=== PATIENT | male | born 1950 | race Caucasian/White ===

== ENCOUNTER 2016-05-30 22:05 | Inpatient (IN) | payer MEDICARE, MEDICAID ==
[~2016-05-30] VITALS: Ht 180.3 cm; Wt 118.6 kg
[2016-05-30 23:31] LABS: BASOPHILS 0.1 % (0.0-2.0); EOSINOPHILS 0 % (0-7); HEMATOCRIT 50.3 % (42.0-54.0); HEMOGLOBIN 17.5 g/dL (13.5-17.5); IMMATURE GRANULOCYTES 0.2 % (0-5); LYMPHOCYTES 8.5 % (15-50); MCHC 34.8 g/dL (31.0-37.0); MEAN PLATELET VOLUME 10.8 fL (7.4-10.4); MONOCYTES 8.5 % (2-11); NEUTROPHILS 82.7 % (40-80); PLATELET COUNT 270 10x3/uL (130-400); RBC 5.47 10x6/uL (4.20-6.10); RDW 13.7 % (11.5-14.5); WBC 18.4 10x3/uL (4.8-10.8)
[2016-05-30 23:56] LABS: ALBUMIN 4.6 g/dL (3.4-5.0); ALKALINE PHOSPHATASE 76 U/L (46-116); ALT (SGPT) 12 U/L (10-68); BILIRUBIN - TOTAL 0.87 mg/dL (0.2-1.3); CALC OSMOLALITY 294 mosm/kg (275-300); CALCIUM 10.2 mg/dL (8.5-10.1); CARBON DIOXIDE 38.3 mmol/L (21.0-32.0); CHLORIDE - SERUM 86 mmol/L (98-107); CREATINE KINASE 85 UL (21-232); CREATININE - SERUM 4.5 mg/dL (0.6-1.3); GLUCOSE 136 mg/dL (74-106); MAGNESIUM - SERUM 2.8 mg/dL (1.8-2.4); POTASSIUM - SERUM 3.4 mmol/L (3.5-5.1); PRO BNP 981 pg/mL (0-125); SODIUM 138 mmol/L (136-145); UREA NITROGEN 60 mg/dL (7-18); eGFR NON AFRICAN AMERICAN 14 mL/min (90-120)
[2016-05-30 23:59] LABS: TROPONIN-I < 0.017 ng/mL (0.000-0.060)
[2016-05-31 00:43] LABS: CKMB 0.7 U/L (0.0-3.6)
[2016-05-31] MEDS ORDERED: MORPHINE SULFAT60 M5 PO (03:12)
[2016-05-31] MEDS ORDERED: ZANAFLEX4 MG PO (03:13)
[2016-05-31] MEDS ORDERED: HYDROCODONE-APA1 TAB PO (03:14)
[2016-05-31 03:38] VITALS: BP 101/57; BMI 18.1
[2016-05-31 04:00] VITALS: BP 97/68
--- NOTE | 2016-05-31 08:10 | NUR ---
ASSESSMENT DONE. PT SITTING UP IN BED EATING. A/O. DENIES NEEDS AT THIS TIME. NO DISTRESS NOTED. DENIES SOB. CRACKLES HEARD BILATERALLY. CALL LIGHT WITH IN REACH. WILL CONT. TO MONITOR.
[2016-05-31 08:12] VITALS: BP 108/61
--- NOTE | 2016-05-31 10:25 | NUR ---
RESTS WITH EYES CLOSED. TELEMETRY SR. CALL LIGHT IN REACH. WILL CONT. PLAN OF CARE.
[2016-05-31 12:03] VITALS: BP 81/44
--- NOTE | 2016-05-31 12:05 | NUR ---
ORDER FOR UA REC'D. TOOK NEW URINAL IN ROOM WITH SPECIMAN CUP AND INFORMED PT THAT CLEAN SPECIMEN WAS NEEDED.
[2016-05-31 16:22] VITALS: BP 97/55
[2016-05-31 17:03] LABS: PHOSPHOROUS 4.4 mg/dL (2.5-4.9)
--- NOTE | 2016-05-31 17:35 | NUR ---
PT SLEEPING. RESP EVEN AND UNLABORED. NO DISTRESS NOTED. CALL LIGHT WITH IN REACH. WILL CONT. TO MONITOR.
[2016-05-31 21:48] VITALS: BP 100/64
[2016-05-31 22:02] LABS: CREATININE - URINE 131.5 mg/dL (30-125); POTASSIUM - URINE 61.9 MMOL/L (12.0-62.0); PROTEIN - URINE 47.9 mg/dL (0.0-11.9)
[2016-05-31 22:07] LABS: APPEARANCE CLEAR (CLEAR); BILIRUBIN NEGATIVE (NEGATIVE); COLOR YELLOW (YELLOW); GLUCOSE NEGATIVE (NEGATIVE); KETONE NEGATIVE (NEGATIVE); LEUKOCYTE ESTERASE NEGATIVE (NEGATIVE); NITRITE NEGATIVE (NEGATIVE); PROTEIN 1+ mg/dL (NEGATIVE); SPECIFIC GRAVITY 1.015 (1.005-1.020); UROBILINOGEN NORMAL (NORMAL)
[2016-05-31 22:08] LABS: BACTERIA FEW /hpf (NONE SEEN); EPITHELIAL CELLS 0-5 /hpf (0-5); HYALINE CAST 0-5 /lpf (NONE SEEN); RED CELLS - URINE 0-5 /hpf (0-5); WHITE CELLS - URINE 0-5 /hpf (0-5)
--- NOTE | 2016-05-31 22:14 | NUR ---
INITIAL ROUNDS COMPLETED AT 1910 HRS. PT DENIED ANY DISCOMFORT. ASSSESSMENT COMPLETED AT 1999 HRS. VSS. SR PER CM HR 84. IV TO LAC WITH NS WITH 20 MEQ KCL AT 150CC/HR. IV PATENT. LUNGS DIMINISHED IN BASES BILAT. VSS. UA SENT TO LAB AT 2130 HRS. PT CURRENTLY RESTING WITH EYES CLOSED. RESP EVEN AND REGULAR. SR UP X2, CALL LIGHT WITHIN REACH.
[2016-06-01] VITALS (7 sets, daily range): BP systolic 75–120; BP diastolic 37–63
--- NOTE | 2016-06-01 00:33 | NUR ---
PT RESTING WITH EYES CLOSED. RESP EVEN AND REGULAR. SR UP X2, CALL LIGHT WITHIN REACH.
--- NOTE | 2016-06-01 02:16 | NUR ---
PT RESTING WITH EYES CLOSED. RESP EVEN AND REGULAR. SR UP X2, CALL LIGHT WITHIN REACH.
--- NOTE | 2016-06-01 04:46 | NUR ---
PT RESTING WITH EYES CLOSED. RESP EVEN AND REGULAR. SR UP X2, CALL LIGHT WITHIN REACH.
--- NOTE | 2016-06-01 06:45 | NUR ---
NORCO 10/325 PO GIVEN FOR C/O CHRONIC BACK PAIN. VSS THROUGHOUT NIGHT. NEEDS MET; WILL CONTINUE TO MONITOR.
[2016-06-01 07:02] LABS: BASOPHILS 0.1 % (0.0-2.0); EOSINOPHILS 0 % (0-7); IMMATURE GRANULOCYTES 0.1 % (0-5); LYMPHOCYTES 19.1 % (15-50); MCHC 33.3 g/dL (31.0-37.0); MCV 93.1 fL (80.0-100.0); MEAN PLATELET VOLUME 10.6 fL (7.4-10.4); MONOCYTES 10.5 % (2-11); NEUTROPHILS 70.2 % (40-80); RDW 13.5 % (11.5-14.5)
[2016-06-01 07:03] LABS: HEMATOCRIT 37.8 % (42.0-54.0); HEMOGLOBIN 12.6 g/dL (13.5-17.5); PLATELET COUNT 208 10x3/uL (130-400); RBC 4.06 10x6/uL (4.20-6.10); WBC 7.7 10x3/uL (4.8-10.8)
[2016-06-01 07:24] LABS: ANION GAP 11.6 mmol/L (8-16); CALCIUM 8.6 mg/dL (8.5-10.1); CARBON DIOXIDE 31.1 mmol/L (21.0-32.0); POTASSIUM - SERUM 3.7 mmol/L (3.5-5.1)
[2016-06-01 07:28] LABS: CREATININE - SERUM 1.5 mg/dL (0.6-1.3)
--- NOTE | 2016-06-01 07:45 | NUR ---
PT RESTING QUIETLY IN BED WITH EYES CLOSED. RR NONLABORED ON RA. INTRODUCED MYSELF TO PT PRIMARY RN FOR TODAYS SHIFT. PT IS ALERT AND ORIENTED. PT STATES HE SLEPT WELL. L.AC PIV PATENT AND INFUSING NS WITH 20MEQ OF KCL @150ML/HR. TELEMETRY IN PLACE RUNNING SR. SCDS IN PLACE BILAT. PT DENIES ANY CURRENT NEEDS AT THIS TIME. CL IN REACH, BED IN LOWEST, SIDE RAILS X2, WILL CTM.
--- NOTE | 2016-06-01 11:15 | NUR ---
PT C/O NAUSEA REQUESTING AND PROVIDED WITH PRN ZOFRAN. PT ALSO C/O HIS CHRONIC BACK PAIN ACHING PRETTY BAD, REQUESTED AND PROVIDED WITH PRN MORPHINE. HUNG NEW FLUID BAG OF NS WITH 20MEQ OF KCL. L.AC PIV SITE INTACT, SWAB CAPS IN USE AND TUBING DATED. PT VOICES THANKS AND DENIES ANY FURTHER NEEDS AT THIS TIME. CL IN REACH. WILL CPOC.
--- NOTE | 2016-06-01 13:45 | NUR ---
PT REQUESTING AND PROVIDED WITH PRN NORCO AND TIZANIDINE FOR BACK PAIN. PROVIDED PT WITH FRESH ICE WATER WELL. PT VOICED THANKS AND DENIES ANY FURTHER NEEDS AT THIS TIME. WILL CTM.
--- NOTE | 2016-06-01 17:30 | NUR ---
PTS L.AC PIV LEAKING. D/C IV WITH CATHETER TIP FULLY INTACT. SITE CLEANED WITH ALCOHOL PAD AND PLACED A BANDAID OVER IT. WILL GET NEW ACCESS SHORTLY.
--- NOTE | 2016-06-01 17:46 | NUR ---
22 GAUGE IV PLACED TO RIGHT FOREARM X 1 STICK. GOOD BLOOD RETURN, EASY FLUSH. TAPED, DATED AND SECURED. TOLERATED IV PLACEMENT WELL. NO DISTRESS.
--- NOTE | 2016-06-01 18:34 | NUR ---
DISCONNECTED PT FROM IV FLUIDS SO HE CAN GET IN THE SHOWER. WILL CONNECT AFTERWARDS. PT REQUESTING SOMETHING FOR PAIN BUT BP HAS BEEN RUNNING LOW. LAST READING 76/46. WILL RECHECK AFTER SHOWER AND SEE IF PT IS ABLE TO HAVE PAIN MEDICATION.
--- NOTE | 2016-06-01 22:28 | NUR ---
INITIAL ROUNDS COMPLETED AT 191 HRS. PT IN SHOWER AT THAT TIME. ASSESSMENT COMPLETED AT 1954 HRS. SR PER CM HR 78. IV TO RFA WITH NS WITH 20 KCL AT 150CC/HR. IV PATENT. LUNGS DIMINISHED IN BASES BILAT. PT UP AD [place]. REFUSES SCD'S AT THAT TIME. ZANAFLEX GIVEN FOR C/O CHRONIC BACK PAIN. PT STATES LATER TAHT IT WORKED. PT CURRENTLY WATCHING TV. WILL CONTINUE TO MONITOR. SR UP X2, CALL LIGHT WITHIN WITHIN REACH.
[2016-06-02] VITALS (7 sets, daily range): BP systolic 81–126; BP diastolic 40–67; Ht 180.3 cm; Wt 118.6 kg
--- NOTE | 2016-06-02 00:53 | NUR ---
ICE CREAM AND GASTON CRACKERS GIVEN PER REQUEST. WILL CONTINUE TO MONITOR.
--- NOTE | 2016-06-02 02:53 | NUR ---
PT REQUESTING ZANAFLEX. BP 95/53. ZANAFLEX TO BE GIVEN FOR C/O MUSCLE SPASMS. WILL CONTINUE TO MONITOR.
--- NOTE | 2016-06-02 05:36 | NUR ---
PT AWAKE; DENIES ANY DISCOMFORT. WILL CONTINUE TO MONITOR.
[2016-06-02 06:27] LABS: BASOPHILS 0.3 % (0.0-2.0); EOSINOPHILS 0.6 % (0-7); HEMATOCRIT 35.5 % (42.0-54.0); HEMOGLOBIN 11.5 g/dL (13.5-17.5); IMMATURE GRANULOCYTES 0.2 % (0-5); LYMPHOCYTES 32.6 % (15-50); MCH 30.9 pg (26.0-34.0); MCHC 32.4 g/dL (31.0-37.0); MEAN PLATELET VOLUME 10.6 fL (7.4-10.4); NEUTROPHILS 57.3 % (40-80); PLATELET COUNT 226 10x3/uL (130-400); RBC 3.72 10x6/uL (4.20-6.10); RDW 13.2 % (11.5-14.5); WBC 6.2 10x3/uL (4.8-10.8)
--- NOTE | 2016-06-02 06:38 | NUR ---
PT STATED ZANAFLEX ALLEVIATED MUSCLE PAIN. SR PER CM. VS ESSENTIALLY STABLE DURING SHIFT. NEEDS MET; WILL CONTINUE TO MONITOR.
[2016-06-02 06:42] LABS: MCV 95.4 fL (80.0-100.0)
[2016-06-02 06:53] LABS: CALCIUM 8.9 mg/dL (8.5-10.1); CHLORIDE - SERUM 106 mmol/L (98-107); GLUCOSE 80 mg/dL (74-106); SODIUM 140 mmol/L (136-145)
[2016-06-02 06:55] LABS: CALC OSMOLALITY 280 mosm/kg (275-300); CREATININE - SERUM 0.9 mg/dL (0.6-1.3); POTASSIUM - SERUM 5.2 mmol/L (3.5-5.1); UREA NITROGEN 20 mg/dL (7-18); eGFR NON AFRICAN AMERICAN 90 mL/min (90-120)
--- NOTE | 2016-06-02 07:26 | NUR ---
AM ROUNDING MADE, PATIENT AROUSES EASILY. DENIES NEEDS AT PRESENT TIME. ON HEART MONITOR SHOWING SR, HR 76. ON ROOM AIR AT PRESENT TIME. RIGHT FA IV SEEN WITH FLUIDS OF NS W 20 K INFUSING AT 150 CC/HR. SCD'S ARE SEEN AND PATIENT ASKED IF HE WILL WEAR THEM, REPLIES NO. WILL CONTINUE TO MONITOR.
--- NOTE | 2016-06-02 12:26 | NUR ---
Patient Name: CHARLEY FLOOD Admission Status: ER Accout number: [id number] Admission Date: 05-31-2016 : 1950 Admission Diagnosis: Attending: MUNDO Current LOS: 2 Anticipated DC Date: Planned Disposition: Home Health Service Primary Insurance: MEDICAID [place] PLANNED EXTERNAL PROVIDER: [facility] Discharge Planning Comments: * Is the patient Alert and Oriented? Yes 0 * How many steps to enter\exit or inside your home? 5 0 * PCP DR. ERNANDEZ 0 * Pharmacy [facility] 0 * Preadmission Environment Home Alone 0 * ADLs Independent 0 * Equipment Other 0 * Other Equipment [facility] NO MEDICAL EQUIPMENT PROVIDER PREFERENCE 0 * List name and contact numbers for known caregivers / representatives who currently or will assist patient after discharge: CHANTE RIVERA, DAUGHTER, 0 * Community resources currently utilized None 0 * Please name any agencies selected above. NONE 0 * Additional services required to return to the preadmission environment? No 0 * Can the patient safely return to the preadmission environment? Yes 0 * Has this patient been hospitalized within the prior 30 days at any hospital? No 0 CM MET WITH PT AND DAUGHTERS IN ROOM TO DISCUSS DISCHARGE PLANNING AND NEEDS. PT REPORTS LIVING AT HOME INDEPENDENTLY AND ALONE. PT HAS [facility] THAT HE RECENTLY OBTAINED WITH NO OTHER MEDICAL EQUIPMENT AND NO MEDICAL EQUIPMENT PROVIDER PREFERENCE. PT HAS NO OUTSIDE SERVICES ASSISTING IN THE HOME. CM DISCUSSED AVAILABILITY OF HOME HEALTH, REHAB SERVICES AND MEDICAL EQUIPMENT. PT THINKS HE MAY NEED HOME HEALTH TO CHECK HIS VITALS FOR A SHORT TIME AFTER DISCHARGE HOME ALONE. PT REPORTS HIS FAMILY WILL PICK HIM UP FOR DISCHARGE HOME. PT REQUESTED MEALS ON WHEELS INFORMATION, CM PROVIDED CONTACT NUMBER FOR MEALS ON WHEELS THROUGH LOCATED WITHIN [facility] ON [address]. PT SIGNED CONSENT FOR [facility] IN CASE THE DOCTOR FEELS IT TO BE NECESSARY. PT WANTS HOME HEALTH FOR OBSERVATION AND ASSESSMENT AT DISCHARGE. CM TO ARRANGE HOME HEALTH IF PHYSICAN AGREES WITH THE NEED AND PROVIDES PHYSICIAN ORDERS. Approver: [facility]
--- NOTE | 2016-06-02 13:17 | NUR ---
PATIENT IS REQUESTING MORE MUSCLE RELAXERS OR PAIN MEDICATION. INFORMED PATIENT THAT WITH HIS B/P 87/46 I AM UNABLE TO GIVE PAIN MEDS AND IT IS TOO SOON FOR MUSCLE RELAXER. WILL CONTINUE TO MONITOR.
--- NOTE | 2016-06-02 15:14 | NUR ---
1500-TO XRAY VIA WHEELCHAIR. 1510-RETURNS FROM XRAY.
--- NOTE | 2016-06-02 16:34 | NUR ---
1625-NG PLACED TO LEFT NARE WITHOUT PROBLEMS. CONNECTED TO LIS. TOLERATED WELL. MADE NPO.
[2016-06-02 16:40] LABS: AMYLASE - SERUM 48 U/L (25-115); LIPASE 128 U/L (73-393); TRIGLYCERIDE 81 mg/dL (30-200)
--- NOTE | 2016-06-02 19:30 | NUR ---
ASSESSMENT COMPLETE, DENIES NEEDS AT THIS TIME. NGTUBE TO LEFT NARE AND TO LIS ON WALL. SHARMILA WELL. HOB UP SR UP X2, C/L IN REACH. CONTINUE TO MONITOR. RT FA IV WITH NS INFUSING W/O DIFF VIA PUMP AT 100CC/HR WITH NO R/S NOTED AT SITE. USES URINAL W/O DIFF. SCDS IN PLACE TO BILAT LOWER LEGS.
[2016-06-03] VITALS: BP 124/70
[2016-06-03 04:00] VITALS: BP 127/62
--- NOTE | 2016-06-03 05:39 | NUR ---
QUIET IN BED WITH EYES CLOSED, RESP UNLAB WITH NO S/S OF ACUTE DISTRESS NOTED. CONTINUE TO MONITOR. REMAINS NPO PER ORDERS.
[2016-06-03 06:07] LABS: BASOPHILS 0.3 % (0.0-2.0); EOSINOPHILS 0.4 % (0-7); HEMATOCRIT 38.2 % (42.0-54.0); HEMOGLOBIN 12.6 g/dL (13.5-17.5); IMMATURE GRANULOCYTES 0.1 % (0-5); LYMPHOCYTES 16.9 % (15-50); MCH 31.1 pg (26.0-34.0); MCV 94.3 fL (80.0-100.0); MEAN PLATELET VOLUME 10.8 fL (7.4-10.4); MONOCYTES 8.3 % (2-11); PLATELET COUNT 240 10x3/uL (130-400); RBC 4.05 10x6/uL (4.20-6.10); RDW 13.4 % (11.5-14.5); WBC 7.2 10x3/uL (4.8-10.8)
[2016-06-03 06:21] LABS: ALKALINE PHOSPHATASE 44 U/L (46-116); ALT (SGPT) 35 U/L (10-68); AMYLASE - SERUM 40 U/L (25-115); BILIRUBIN - TOTAL 0.61 mg/dL (0.2-1.3); CALC OSMOLALITY 278 mosm/kg (275-300); CALCIUM 8.8 mg/dL (8.5-10.1); CARBON DIOXIDE 30.3 mmol/L (21.0-32.0); CHLORIDE - SERUM 103 mmol/L (98-107); CREATININE - SERUM 0.8 mg/dL (0.6-1.3); GLUCOSE 82 mg/dL (74-106); LIPASE 101 U/L (73-393); PROTEIN - SERUM 5.6 g/dL (6.4-8.2); SODIUM 141 mmol/L (136-145); UREA NITROGEN 10 mg/dL (7-18); eGFR NON AFRICAN AMERICAN > 90 mL/min (90-120)
--- NOTE | 2016-06-03 07:37 | NUR ---
0710-AM ROUNDING MADE. PATIENT IS NPO STATUS WITH NG TUBE SEEN TO LEFT NARE DRAINING THIN BROWN LIQUIDS. ON HEART MONITOR SHOWING SR, HR 83. NS INFUSING TO RIGHT FA AT 100 CC/HR. PATIENT USES URINAL. BILATERAL SCD ARE ON AND IN USE. WILL CONTINUE TO MONITOR.
[2016-06-03 08:07] VITALS: BP 115/61
--- NOTE | 2016-06-03 08:18 | NUR ---
NEW NG CANISTER PLACED OTHER ONE IS FULL, WILL CONTINUE TO MONITOR.
--- NOTE | 2016-06-03 11:44 | NUR ---
1135-CALLED TO ROOM. PATIENT STATES THAT HE STOOD UP TO USE THE URINAL AND THE NG FELL OUT. REPLEACED NEW NG TUBE TO LEFT NARE WITH KRISH DELGADO RN IN ROOM TO VERIFY PLACEMENT.
[2016-06-03 12:14] VITALS: BP 110/56
--- NOTE | 2016-06-03 14:05 | NUR ---
BEEN UP IN HALLWAY WITH THERAPY. BED LINENS CHANGED. WILL CONTINUE TO MONITOR.
[2016-06-03 15:45] VITALS: BP 111/64
--- NOTE | 2016-06-03 17:38 | NUR ---
RESTING QUITELY WITH RESP EVEN AND NON LABORED. NG TUBE STILL INTACT. WILL CONTINUE OT MONITOR.
[2016-06-03 19:00] VITALS: BP 97/64
--- NOTE | 2016-06-03 19:30 | NUR ---
DENIES NEEDS UPON AROUSAL. HOB UP NG TUBE TO LIS IN PLACE, NS INFUSING W/O DIFF VIA PUMP TO RT FA, NO R/S NOTED AT SITE. TELEMETRY SHOWING HR SR, USES URINAL W/O DIFF, ON ROOM AIR, BIALT SCDS IN PLACE. SR UP X2, C/L IN REACH.
[2016-06-04 01:10] VITALS: BP 122/60
--- NOTE | 2016-06-04 04:44 | NUR ---
EYES CLOSED, RESP EVEN AND UNLAB WITH NO S/S OF ACUTE DISTRESS NOTED. C/L IN REACH. CONTINUE TO MONITOR.
[2016-06-04 05:50] LABS: BASOPHILS 0.1 % (0.0-2.0); EOSINOPHILS 0 % (0-7); HEMATOCRIT 42.3 % (42.0-54.0); HEMOGLOBIN 13.8 g/dL (13.5-17.5); IMMATURE GRANULOCYTES 0.3 % (0-5); LYMPHOCYTES 11.9 % (15-50); MCH 30.7 pg (26.0-34.0); MCHC 32.6 g/dL (31.0-37.0); MEAN PLATELET VOLUME 10.6 fL (7.4-10.4); MONOCYTES 9.1 % (2-11); NEUTROPHILS 78.6 % (40-80); PLATELET COUNT 279 10x3/uL (130-400); RDW 13.4 % (11.5-14.5)
[2016-06-04 05:56] LABS: CALCIUM 9.1 mg/dL (8.5-10.1); CARBON DIOXIDE 36.5 mmol/L (21.0-32.0); CHLORIDE - SERUM 104 mmol/L (98-107); CREATININE - SERUM 0.9 mg/dL (0.6-1.3); GLUCOSE 95 mg/dL (74-106); SODIUM 147 mmol/L (136-145); eGFR NON AFRICAN AMERICAN 90 mL/min (90-120)
[2016-06-04 05:57] LABS: CALC OSMOLALITY 292 mosm/kg (275-300); UREA NITROGEN 16 mg/dL (7-18)
[2016-06-04 05:58] LABS: WBC 11.8 10x3/uL (4.8-10.8)
[2016-06-04 08:12] VITALS: BP 95/64
--- NOTE | 2016-06-04 11:38 | NUR ---
REPLACED PTS NG TUBE ADHESIVE TO STICK TO HIS NOSE. NG SUCTIONING LOTS OF DARK COLORED FLUIDS. PT REQUESTED AND WAS PROVIDED WITH PRN ZOFRAN FOR NAUSEA. PT HAS NS @100ML/HR INFUSING VIA R.FA PIV. DRSG CDI AND SWAB CAPS IN USE. PT REQUESTED AND WAS PROVIDED WITH ICE CHIPS. PT DENIES ANY FURTHER NEEDS AT THIS TIME. CL IN REACH, BED IN LOWEST, SIDE RAILS X2. WILL CTM.
[2016-06-04 12:04] VITALS: BP 98/65
--- NOTE | 2016-06-04 12:52 | NUR ---
PTS TEMP SLOWLY RISING. CURRENTLY 100.6. MEGAN CALVILLO HERE AND GAVE VERBAL ORDERS FOR TYLENOL SUPPOSITORY. WILL ADMINISTER AND CTM FOR FEVER.
--- NOTE | 2016-06-04 14:05 | NUR ---
INITIATED PTS IV POTASSIUM CHLORIDE 10MEQ FOR EP REPLACEMENT. PT WILL RECIEVE 4 DOSES TO REPLACE K LEVEL OF 3.0.
--- NOTE | 2016-06-04 14:56 | NUR ---
D/C PTS NG TUBE. PT FELT IMMEDIATE RELIEF AND VOICED THANKS. PT NOW ON CLEAR LIQUID DIET AND TRAY ORDERED BUT PT WILL REMAIN NPO UNTIL AFTER US OF GALLBLADDER. PT C/O HIS IV BURNING. PIV STILL INTACT AND PATENT HOWEVER POTASSIUM WAS INFUSING. PT REQUESTED IT STOPPED. CLAMPED POTASSIUM AND STARTED NS @100ML/HR. PT WILL TAKE PO FORM OF POTASSIUM REPLACEMENT AFTER US. NO FURTHER NEEDS AT THIS TIME. DAUGHTER AT BEDSIDE VISITING. WILL CTM.
[2016-06-04 16:25] VITALS: BP 98/62
--- NOTE | 2016-06-04 18:07 | CN ---
PATIENT NAME:CHARLEY FLOOD MEDICAL RECORD: [id number] : [birth year] LOCATION:D. D.2138 ADMIT DATE: 05/31/16 ACCOUNT: [id number] CONSULTING PHYSICIAN: YARI LUCERO MD REFERRING PHYSICIAN: BREANA GANDHI MD DATE OF CONSULTATION: 06/04/2016 Surgical Consultation CONSULTING PHYSICIAN: Yari Lucero MD REASON FOR CONSULTATION: Pancreatitis. HISTORY OF PRESENT ILLNESS: This is a 66-year-old male who was admitted in the hospital 4 days ago with 1-week history of anorexia, malaise, nausea, vomiting, weakness and metallic taste. He says the episodes started slowly after Jenise. He had a bout of severe constipation, which he took a large dose of magnesium citrate and Dulcolax. He says that he developed acute onset of abdominal pain and diarrhea. His pain is located in the epigastric region. It is nonradiating. The pain is constant. It is significantly improved from admission. At the time that he is admitted, on the CT scan, he was found to have peripancreatic fluid consistent with pancreatitis. He says he had 1 prior bout of pancreatitis, which he was admitted to the hospital sometime in 1994 and 1995. He denies any history of drinking or alcohol abuse. He does not know if he has ever had any ____ ultrasound of his gallbladder. PAST MEDICAL HISTORY: Back pain, peptic ulcer disease and ankylosing spondylitis. His railroad hand is Dr. Fagan. PAST SURGICAL HISTORY: Denies any surgical history. SOCIAL HISTORY: He is a current everyday smoker, 1 pack. Denies any history of substance abuse or alcohol. ALLERGIES: ASPIRIN. HOME MEDICATIONS: Include Flomax, hydrocodone and Centrum as well ____. FAMILY HISTORY: The patient denies any family history. REVIEW OF SYSTEMS: A 12-point review of systems was obtained. Pertinent positives and negatives as per the HPI. PHYSICAL EXAMINATION: VITAL SIGNS: Temperature 100.6, pulse rate 110, respiratory rate 21, blood pressure 95/65, satting 93% on room air. GENERAL: This is a cachectic appearing male in mild distress. PSYCHIATRIC: He is alert and oriented times 3. EYES: Extraocular muscles are intact. No scleral icterus. EAR, NOSE, AND THROAT: Mucous membranes are moist, has normal dentition. CARDIOVASCULAR: Normal sinus rhythm. LUNGS: Clear to auscultation. ABDOMEN: Soft, nondistended, mildly tender to palpation in epigastric region. No rebound. No guarding and no palpable hernia defects. SKIN: Warm, dry with normal turgor. CONSULT REPORT [id number] CHARLEY FLOOD EXTREMITIES: A 2+ pulses. No peripheral edema. He is neurovascularly intact. NEUROLOGIC: GCS of 15 with no focal deficits. LABORATORY DATA: White count 11,800, hemoglobin 13, hematocrit 42, platelet count 279. Sodium 147, potassium 3, chloride 104, carbon dioxide of 36.5, BUN 16, creatinine 0.9, bilirubin 0.6, AST 19, ALT 35, alkaline phosphatase 44, amylase 40, lipase 101. CT of the abdomen and pelvis, images personally reviewed, which shows some inflammation around the pancreas with a nonobstructing right renal stone, he has got a left kidney cyst. IMPRESSION: A 66-year-old male on chronic narcotics with abdominal pain, history of constipation and pancreatitis. PLAN: 1. Discontinue NG tube. 2. Clear liquid diet. 3. Bowel regimen. 4. Initiate b.i.d. Protonix. 5. Serial abdominal exams 6. Ultrasound of the right upper quadrant to rule out biliary cause of pancreatitis. TRANSINT:[id number] Voice Confirmation ID: [id number] DOCUMENT ID: [id number] YARI LUCERO MD at 1807 CC: [id number] DICTATION DATE: 06/04/16 1446 TRIBAL JUDGE: 06/04/16 1528 [place] [address]
--- NOTE | 2016-06-04 19:46 | NUR ---
IN BED RESTING ON RIGHT SIDE, RESPERATIONS EVEN. IV TO RIGHT FOREARM WITH NS INFUSING AT 100, SITE CLEAN AND DRY. PT DENIES PAIN OR NEEDS, BED LOW, CL IN REACH, WILL CONT TO MONITOR.
[2016-06-04 20:00] VITALS: BP 95/56
--- NOTE | 2016-06-04 21:21 | NUR ---
HS MEDS GIVEN WITH FRESH ICE WATER, PT DENIES PAIN OR NEEDS, BED LOW, CL IN REACH.
[2016-06-05] VITALS: BP 88/55
--- NOTE | 2016-06-05 02:27 | NUR ---
LYING IN BED WITH CALL LIGHT IN REACH. WILL CONTINUE WITH PLAN OF CARE.
[2016-06-05 04:00] VITALS: BP 91/56
--- NOTE | 2016-06-05 04:56 | NUR ---
RESTING WITH EYES CLOSED, RESPERATIONS EVEN, NO S/S DSITRESS NOTED.
[2016-06-05 06:44] LABS: BASOPHILS 0.1 % (0.0-2.0); EOSINOPHILS 0.1 % (0-7); HEMATOCRIT 34.8 % (42.0-54.0); HEMOGLOBIN 11.5 g/dL (13.5-17.5); IMMATURE GRANULOCYTES 0.2 % (0-5); LYMPHOCYTES 21.9 % (15-50); MCH 30.7 pg (26.0-34.0); MEAN PLATELET VOLUME 9.8 fL (7.4-10.4); MONOCYTES 8.5 % (2-11); NEUTROPHILS 69.2 % (40-80); PLATELET COUNT 241 10x3/uL (130-400); RBC 3.74 10x6/uL (4.20-6.10); RDW 13.4 % (11.5-14.5); WBC 9.6 10x3/uL (4.8-10.8)
[2016-06-05 07:05] LABS: CALC OSMOLALITY 281 mosm/kg (275-300); CALCIUM 8.4 mg/dL (8.5-10.1); CARBON DIOXIDE 31.3 mmol/L (21.0-32.0); CHLORIDE - SERUM 104 mmol/L (98-107); CREATININE - SERUM 0.9 mg/dL (0.6-1.3); GLUCOSE 93 mg/dL (74-106); SODIUM 141 mmol/L (136-145); UREA NITROGEN 16 mg/dL (7-18); eGFR NON AFRICAN AMERICAN 90 mL/min (90-120)
[2016-06-05 08:43] VITALS: BP 85/60
[2016-06-05 12:11] VITALS: BP 100/54
[2016-06-05 13:14] LABS: % SATURATION 19 % (15-55); IRON 47 ug/dl (35-150); TOTAL IRON BIND CAPACITY 241 ug/dl (260-445); UNSAT IRON BIND CAPACITY 194 ug/dl (150-375)
[2016-06-05 16:00] VITALS: BP 84/46
--- NOTE | 2016-06-05 19:13 | NUR ---
0800- PATIENT IS AWAKE AND ALERT, DENIES NEEDS AT THIS TIME. 0910- PATIENT GIVEN HIS MEDICATIONS, REFUSED MOM, FIRST BAG OF POTASSIUM BEGUN. HE REQUESTS MORPHINE FOR C/O UPPER BACK PAIN THAT HE RATES A 9-10. 1150- PATIENT GIVEN ZANAFLEX FOR C/O NECK TIGHTNESS. 1235- PATIENT RESTING QUIETLY WITH EYES CLOSED. HE HAS CONSUMED SOME OF HIS LIQUID DIET. IVF AND SECOND POTASSIUM HUNG. IV INSERTION IS WITHOUT S/S OF REDNESS, INFILTRATION. HE DENIES BURNING. 1350- PATIENT REQUESTS PAIN MEDICATION FOR RECURRENT PAIN. 1500- PATIENT UP AMBULATING IN HIS ROOM, HAS BEEN INTO HIS BEDISDE CHAIR. IS FRIENDLY AND STATES THAT GIRISH BACK PAIN HAS SUBSIDED CONSIDERABLY. 1725- IVABT, AND PROTONIX GIVEN. HE REQUESTS ZANAFLEX FOR TIGHT BACK/ NECK MUSCLES. 1800- PATINET WITHOUT C/O ANY KIND. STATES HTAT HE MAY GET UP AND AMBULATE THE HALLWAY.
--- NOTE | 2016-06-05 22:54 | NUR ---
RECIEVED REPORT ON PATIENT, ALERT AND ORIENTED, RIGHT FOREARM IV NS AT 100, C/O PAIN ZANAFLEX GIVEN AT 2130, DUE FOR GALLBLADDER REMOVAL ON THURSDAY, ON TELE. SR, WILL CONTINUE TO MONITOR, CONTINUE PLAN OF CARE,
--- NOTE | 2016-06-05 23:29 | NUR ---
PATIENT RESTING QUIETLY IN BED NO ACUTE DISTRESS NOTED.
[2016-06-06] VITALS: BP 98/57
--- NOTE | 2016-06-06 01:21 | NUR ---
PATIENT RESTING QUIETLY IN BED, EYES CLOSED, WILL CONTINUE TO MONITOR, PATIENT NOW NPO.
--- NOTE | 2016-06-06 02:58 | NUR ---
PRN ZOFRAN 4 MG IV GIVEN FOR NAUSEA
[2016-06-06 04:00] VITALS: BP 102/61
--- NOTE | 2016-06-06 05:04 | NUR ---
CALL LIGHT IN REACH, WILL CONTINUE WITH PLAN OF CARE.
--- NOTE | 2016-06-06 07:53 | NUR ---
0715-AM ROUNDING DONE. PATIENT IS NPO FOR SURGERY THIS AM. PERMITS ARE SIGNED, PATIENT HAS HAD THEIR SURGICAL BATH. SALINE LOCK SEEN TO LEFT FA, FLUSHES WELL. ON ROOM AIR. WILL CONTINUE TO MONITOR.
--- NOTE | 2016-06-06 08:51 | NUR ---
SPOKE WITH DR LUCERO AND WAS GIVEN THE OKAY TO GIVE LOVEONOX.
[2016-06-06 09:07] VITALS: BP 118/67
--- NOTE | 2016-06-06 11:11 | CN ---
PATIENT NAME:CHARLEY FLOOD MEDICAL RECORD: [id number] : 52 LOCATION:D. D.2138 ADMIT DATE: 05/31/16 ACCOUNT: [id number] CONSULTING PHYSICIAN: MERA CHRIS MD REFERRING PHYSICIAN: BREANA GANDHI MD DATE OF CONSULTATION: 05/31/2016 Cardiology Consultation DIAGNOSES: 1. Abdominal pain. 2. Nausea and vomiting. 3. Shortness of breath. 4. Smoking history. HISTORY OF PRESENT ILLNESS: This is a gentleman who presents with abdominal complaints. No cardiac complaints. He has had nausea and vomiting since last Thursday, not being able to keep anything in the stomach. He has complained of mild shortness of breath, but this is chronic. He does have extensive smoking history. No cardiac history. Troponin is normal. PHYSICAL EXAMINATION: GENERAL APPEARANCE: Well-nourished, well-developed, appears stated age. Level of distress, comfortable. PSYCHIATRIC: Mental status, alert, normal affect. Orientation, oriented to time, place and person. EYES: Lids and conjunctiva, noninjected. No discharge, no pallor. ENT: Lips, teeth, gums, normal dentition. Oropharynx, no cyanosis, no pallor. NECK: Carotid arteries, bilateral normal upstroke, no bruits, no thrills. JUGULAR VEINS: No jugular venous pressure or distention. CERVICAL LYMPH NODES: Nontender, nonenlarged. THYROID: Not enlarged. Nontender. No nodules. LUNGS: Respiratory effort, unlabored. CHEST: Normal curvature. No thoracic deformity. No chest wall tenderness. Percussion, resonant. Auscultation, clear. No wheezes, no rales, no rhonchi. CARDIOVASCULAR: Precordial exam, nondisplaced. No heaves or pericardial thrills. Rate and rhythm, regular. Heart sounds, normal S1, normal S2. No S3, no gallop, no rub. Systolic murmur, not heard. Diastolic murmur, not heard. EXTREMITIES: No cyanosis, no edema. Peripheral pulses, full and equal in all extremities, except as noted. No bruits appreciated. ABDOMEN: Soft, nondistended. Normal aorta. No bruit. Nontender. No masses. Liver, nontender, no hepatomegaly. Spleen, nontender, no splenomegaly. MUSCULOSKELETAL: No joint tenderness. No joint swelling. No erythema. NEUROLOGICAL: Normal gait, normal strength, normal tone. SKIN: Warm and dry. REVIEW OF SYSTEMS: The patient reports easy bruising but reports no swollen glands. The patient reports no fever, no night sweats, no significant weight gain, no significant weight loss. No significant exercise tolerance. The patient reports no dry eyes, no irritation, no vision change. Patient reports no difficulty hearing and no ear pain. Patient reports no frequent nose bleeds or nose and sinus problems. Patient reports on arm pain on exertion. No shortness of breath while lying down. No history of heart murmur. Patient reports no cough, no wheezing or coughing up blood. Patient reports no abdominal pain, no vomiting. Normal appetite. No diarrhea and not vomiting CONSULT REPORT [id number] CHARLEY FLOOD blood. No nausea and no constipation. Patient reports no incontinence. No difficulty urinating. No hematuria. No increased frequency. Patient reports no muscle aches. No weakness, no arthralgias, no back pain. No swelling of the extremities. Patient reports no abnormal mole, no jaundice, no rashes. Reports no loss of consciousness. No weakness and no numbness. No seizures, dizziness, or headaches. The patient reports no depression, no sleep disturbance, feeling safe in a relationship and no alcohol abuse. Patient reports on fatigue. Reports no runny nose or sinus pressure. No itching, no hives, and no frequent sneezing. OVERALL IMPRESSION: Abdominal symptomatology. No cardiac symptomatology. I do not think that this is cardiac in etiology. The shortness of breath is most likely secondary to chronic obstructive pulmonary disease. We will get an echocardiogram to evaluate overall left ventricular function and valvular structures. In lightness of the shortness of breath, most likely this is not cardiac at all. No other cardiac workup treatment is necessary. TRANSINT:[id number] Voice Confirmation ID: [id number] DOCUMENT ID: [id number] MERA CHRIS MD at 1111 CC: [id number] DICTATION DATE: 05/31/16 1103 SOFTWARE CONFIGURATION SPECIALIST: 05/31/16 1149 ADM IN [id number] [place] [address]
--- NOTE | 2016-06-06 11:11 | EC ---
PATIENT:CHARLEY FLOOD DATE OF SERVICE: 05/31/16 SEX: M MEDICAL RECORD: [id number] DATE OF : [birth year] LOCATION:D.M2 D.213 AGE OF PATIENT: 66 ADMISSION DATE: 05/31/16 REFERRING PHYSICIAN: INTERPRETING PHYSICIAN: MERA QUINTERO MD ECHOCARDIOGRAM REPORT ECHO CHARGES 4 ECHO COMPLETE CLINICAL DIAGNOSIS: CHEST PAIN,FEVER ECHOCARDIOGRAPHIC MEASUREMENTS (adult normal given) AC root (d.<3.7cm) 3.6 LV Septum d (<1.2 cm> 0.9 Valve Excursion 1.3 LV Septum (systole) 1.2 Left Atria (s.<4.0cm> 3.1 LVPW d(<1.2cm) 1.2 RV (d.<2.3cm) 2.8 LVPW (sytole) 1.3 LV diastole(<5.6CM) 3.8 MV E-F(>70mm/sec) LV systole 2.3 LVOT Diameter 1.7 MV exc.(>10mm) 1.1 Est.ejection fraction (50-75%) Pericardial Effusion N DOPPLER: LVIT A 67.0 E 47.0 LA RVSP 29 LVOT 124 AOP1/2T Asc. Ao 153 RVOT 142 RA PA 153 AV Gradient Peak 9.31 AV Mean 5.80 AV Area 1.7 MV Gradient Peak 2.5 MV Mean 0.81 MV Area COMMENTS: Medical Recruiter: Ori AYON Area Safety Manager:Inessa Quintero TAPE# PACS DATE OF SERVICE: 05/31/2016 Echocardiogram FINDINGS: 1. Left ventricular chamber size is within normal limits. Left ventricular systolic function is normal. Overall ejection fraction estimated at 60%. 2. Left atrium, right atrium, and right ventricular chamber sizes are within normal limits. 3. Valvular structures have normal structure and motion. ECHOCARDIOGRAM REPORT [id number] CHARLEY FLOOD 4. Doppler interrogation reveals mild tricuspid regurgitation. No other valvular insufficiency or stenosis. 5. No evidence of pericardial effusion or left ventricular thrombus. TRANSINT:[id number] Voice Confirmation ID: [id number] DOCUMENT ID: [id number] MERA QUINTERO MD at 1111 CC: [id number] DICTATION DATE: 06/01/16 1203 JEWISH THOUGHT PROFESSOR: 01/08/17 1217 ADM IN [facility] [address] [id number]
--- NOTE | 2016-06-06 11:35 | NUR ---
TO OR VIA BED.
[2016-06-06 12:19] LABS: FOLATE (FOLIC ACID) - SERUM 11.9 ng/mL (>3.0)
--- NOTE | 2016-06-06 12:42 | NUR ---
RETURNS FROM GI LAB. EXPLAINED TO PATIENT WHAT DR HOPPER WANTED TO DO TODAY (FLEX SIG). WITH DREW GANNON IN ROOM AND MYSELF, THE PATIENT STATES THAT SHE DOES NOT WANT TO HAVE THIS DONE. CALLED GI LAB AND TOLD THEM.
--- NOTE | 2016-06-06 14:04 | NUR ---
Nutrition follow-up: Pt is NPO for lap neo PO intake has been poor since admit Wt: 117# Labs reviewed Will continue to provide food choices and honor food preferences post-op when diet advances. RDN following.
[2016-06-06] MEDS ORDERED: OXYCODONE HCL5 MG PO (14:23)
--- NOTE | 2016-06-06 14:53 | NUR ---
THE PATIENT IS SLEEPING WHEN NOT STIMULATED AND APPEARS TO REST COMFORTABLE
[2016-06-06 15:01] VITALS: BP 124/67
[2016-06-06 15:34] LABS: BASOPHILS 0.2 % (0.0-2.0); EOSINOPHILS 0.7 % (0-7); HEMATOCRIT 34.6 % (42.0-54.0); HEMOGLOBIN 11.2 g/dL (13.5-17.5); IMMATURE GRANULOCYTES 0.3 % (0-5); LYMPHOCYTES 16.5 % (15-50); MCH 30.7 pg (26.0-34.0); MCHC 32.4 g/dL (31.0-37.0); MCV 94.8 fL (80.0-100.0); MEAN PLATELET VOLUME 9.5 fL (7.4-10.4); MONOCYTES 5.7 % (2-11); NEUTROPHILS 76.6 % (40-80); PLATELET COUNT 288 10x3/uL (130-400); RBC 3.65 10x6/uL (4.20-6.10); RDW 13.2 % (11.5-14.5)
--- NOTE | 2016-06-06 15:58 | NUR ---
RESTING IN BED - V/S STABLE - INCISIONS CLEAN AND DRY - ALERT AND ORIENTED
[2016-06-06 15:59] LABS: CALC OSMOLALITY 277 mosm/kg (275-300); CARBON DIOXIDE 26.8 mmol/L (21.0-32.0); CHLORIDE - SERUM 105 mmol/L (98-107); CREATININE - SERUM 0.8 mg/dL (0.6-1.3); GLUCOSE 95 mg/dL (74-106); POTASSIUM - SERUM 3.4 mmol/L (3.5-5.1); SODIUM 140 mmol/L (136-145); eGFR NON AFRICAN AMERICAN > 90 mL/min (90-120)
[2016-06-06 16:02] LABS: UREA NITROGEN 9 mg/dL (7-18)
[2016-06-06 16:56] VITALS: BP 93/60
--- NOTE | 2016-06-06 18:51 | NUR ---
UP IN BED DRINKING - DENIES ANY NEEDS AT THIS TIME
[2016-06-06 20:00] VITALS: BP 74/41
--- NOTE | 2016-06-06 21:54 | NUR ---
PT RESTING IN BED. CURRENT BP 89/61. ALERT ORIENTED CONVERSANT. DENIES NEEDS. REFUSED MIRALAX AND MILK OF MAGNESIA
--- NOTE | 2016-06-06 23:45 | NUR ---
CURRENTLY RECEIVING UPDRAFT. CONTINUE TO MONITOR
[2016-06-07] VITALS (10 sets, daily range): BP systolic 84–139; BP diastolic 39–69
--- NOTE | 2016-06-07 07:36 | NUR ---
AM ROUNDING- PT SITTING UP IN BED WITH EYES OPEN C/O IV (RIGHT FOREARM) THAT IS LEAKING. METER SETTER NURSE ALEXIS, RE-SITED IV TO LEFT FOREARM X 1 STICK. TOLERATED WELL. NS IS RUNNING AT 50CC. ON MONITOR SHOWING SR, HR 94. ON EP. TWO INCISIONS SITES SEEN TO ABDOMINAL AREA WITH CLEAN, DRY, AND INTACT DRESSINGS. ON ROOM AIR. PT IS UP AD HUMPHREY PER REPORT FROM METER SETTER NURSEALEXIS. NO NEED AT CURRENT TIME. WILL CONTINUE TO MONITOR.
--- NOTE | 2016-06-07 07:54 | NUR ---
ON EP. AWAITING AM LAB RESULTS.
[2016-06-07 09:02] LABS: CALCIUM 7.7 mg/dL (8.5-10.1); CHLORIDE - SERUM 103 mmol/L (98-107); GLUCOSE 95 mg/dL (74-106); SODIUM 136 mmol/L (136-145)
[2016-06-07 09:04] LABS: CALC OSMOLALITY 271 mosm/kg (275-300); CREATININE - SERUM 0.5 mg/dL (0.6-1.3); POTASSIUM - SERUM 4.8 mmol/L (3.5-5.1); UREA NITROGEN 13 mg/dL (7-18); eGFR NON AFRICAN AMERICAN > 90 mL/min (90-120)
[2016-06-07 09:56] LABS: BASOPHILS 0.1 % (0.0-2.0); EOSINOPHILS 0.1 % (0-7); IMMATURE GRANULOCYTES 0.2 % (0-5); LYMPHOCYTES 11.3 % (15-50); MCH 30.7 pg (26.0-34.0); MCHC 33.1 g/dL (31.0-37.0); MEAN PLATELET VOLUME 9.5 fL (7.4-10.4); MONOCYTES 6.6 % (2-11); NEUTROPHILS 81.7 % (40-80); PLATELET COUNT 277 10x3/uL (130-400); RDW 13.3 % (11.5-14.5); WBC 9.9 10x3/uL (4.8-10.8)
[2016-06-07 09:57] LABS: HEMATOCRIT 23.9 % (42.0-54.0); HEMOGLOBIN 7.9 g/dL (13.5-17.5); RBC 2.57 10x6/uL (4.20-6.10)
[2016-06-07 10:55] LABS: MAGNESIUM - SERUM 1.4 mg/dL (1.8-2.4); PHOSPHOROUS 2.9 mg/dL (2.5-4.9)
[2016-06-07 13:54] LABS: CKMB 1.1 U/L (0.0-3.6); CREATINE KINASE 76 UL (21-232); TROPONIN-I < 0.017 ng/mL (0.000-0.060)
--- NOTE | 2016-06-07 15:45 | NUR ---
ONE UNIT OF PACKED RED BLOOD CELLS INITIATING ORDERED. WILL CONTINUE TO MONITOR.
--- NOTE | 2016-06-07 15:51 | NUR ---
PTS 02 SAT WAS 87 WHEN CHECKED. PUT O2 ON PT AT 2L VIA NC. PTS O2 SAT IS NOW 94%. WILL CONTINUE TO MONITOR.
--- NOTE | 2016-06-07 18:14 | NUR ---
PT SITTING UP IN BED WATCHING TV. DENIES ANY NEED AT CURRENT TIME. WILL CONTINUE TO MONITOR.
[2016-06-07 19:23] LABS: CKMB 0.9 U/L (0.0-3.6); CREATINE KINASE 94 UL (21-232)
[2016-06-07 19:24] LABS: TROPONIN-I < 0.017 ng/mL (0.000-0.060)
--- NOTE | 2016-06-07 20:00 | NUR ---
INTRODUCED MYSELF TO PT PRIMARY RN FOR TONIGHTS SHIFT. PT IS ALERT AND ORIENTED RESTING QUIETLY IN BED. RR NONLABORED ON RA. PT HAS L.FA PIV WITH DRSG CDI AND SWAB CAPS IN USE WITH NS INFUSING @100ML/HR. PTS ABDOMEN HAS 3 SMALL INCISION SITES WITH STERI STRIPS CDI. PT WILL RECIEVE ANOTHER UNIT OF BLOOD TONIGHT AND IS AWARE AND CONSENTS ARE SIGNED IN THE CHART. PT DENIES ANY CURRENT NEEDS AND HAS CL IN REACH IF NEEDING ANYTHING. WILL CTM.
--- NOTE | 2016-06-07 21:45 | NUR ---
PT REFUSED NIGHTLY MIRALAX AND MILK OF MAG R/T DENYING THE NEED FOR IT. PT STATES HE HAD A BM 2 DAYS AGO AND DOESNT WANT THE MEDS. PT ALSO STATES HE HASNT EATEN MUCH TO BE ABLE TO PRODUCE A NORMAL BOWEL MOVEMENT.
--- NOTE | 2016-06-07 23:04 | NUR ---
INITIATED PTS BLOOD TRANSFUSION. THIS IS UNIT #2/2. PT IS RESTING QUIETLY AND DENIES ANY CURRENT NEEDS. RR NONLABORED ON RA. VSS. WILL CONTINUE TO MONITER FOR ANY REACTIONS AND DOCUMENT VITALS PER PROTOCOL. NO FURTHER NEEDS AT THIS TIME. CL IN REACH, BED IN LOWEST, SIDE RAILS X2. WILL CPOC.
--- NOTE | 2016-06-07 23:49 | NUR ---
PTS BP LOW AGAIN AT 91/51 AND TEMP INCREASED TO 99.7. GAVE PT 2 TYLENOL FOR TEMP AND PAIN AND INCREASED BLOOD TRANSFUSION TO 130ML/HR. PT STATES HE FEELS FINE OTHER THAN HIS ABDOMINAL DISCOMFORT. PT RESTING QUIETLY DENIES ANY CURRENT NEEDS. WILL CTM.
[2016-06-08] VITALS (8 sets, daily range): BP systolic 93–115; BP diastolic 54–65
--- NOTE | 2016-06-08 00:23 | NUR ---
EMPTIED BEDSIDE URINAL OF 175ML YELLOW URINE. PT RESTING QUIETLY IN BED WITH HIS BLOOD TRANSFUSING. RR NONLABORED. PT DENIES ANY CURRENT NEEDS. CL IN REACH. WILL CPOC.
--- NOTE | 2016-06-08 02:00 | NUR ---
BLOOD TRANSFUSION COMPLETED. ENDING BP 109/54, TEMP BACK DOWN TO 98.6. PT DENIES HAVING ANY NOTED REACTION AND NO S/S WERE FOUND. FLUSHED L.FA PIV AND RECONNECTED PTS NS INFUSING @100ML/HR. PT IS READY TO TRY AND GET SOME REST NOW. DENIES ANY FURTHER NEEDS. CL IN REACH. WILL CPOC.
[2016-06-08 04:07] LABS: BASOPHILS 0 % (0.0-2.0); EOSINOPHILS 0.2 % (0-7); HEMOGLOBIN 8.9 g/dL (13.5-17.5); IMMATURE GRANULOCYTES 0.3 % (0-5); LYMPHOCYTES 17.1 % (15-50); MCH 29.9 pg (26.0-34.0); MCHC 34.2 g/dL (31.0-37.0); MEAN PLATELET VOLUME 9.2 fL (7.4-10.4); MONOCYTES 6.9 % (2-11); NEUTROPHILS 75.5 % (40-80); PLATELET COUNT 230 10x3/uL (130-400); RBC 2.98 10x6/uL (4.20-6.10); RDW 15.4 % (11.5-14.5); WBC 9.4 10x3/uL (4.8-10.8)
[2016-06-08 04:10] LABS: MCV 87.2 fL (80.0-100.0)
[2016-06-08 04:31] LABS: CALC OSMOLALITY 276 mosm/kg (275-300); CALCIUM 7.6 mg/dL (8.5-10.1); CARBON DIOXIDE 27.8 mmol/L (21.0-32.0); CHLORIDE - SERUM 105 mmol/L (98-107); CREATINE KINASE 124 UL (21-232); CREATININE - SERUM 0.7 mg/dL (0.6-1.3); GLUCOSE 98 mg/dL (74-106); MAGNESIUM - SERUM 1.5 mg/dL (1.8-2.4); PHOSPHOROUS 2.4 mg/dL (2.5-4.9); SODIUM 140 mmol/L (136-145); TROPONIN-I < 0.017 ng/mL (0.000-0.060); UREA NITROGEN 8 mg/dL (7-18); eGFR NON AFRICAN AMERICAN > 90 mL/min (90-120)
[2016-06-08 04:33] LABS: POTASSIUM - SERUM 2.8 mmol/L (3.5-5.1)
--- NOTE | 2016-06-08 05:19 | NUR ---
PT HAD 3 ELECTROLYTES NEEDING REPLACED. SCANNED AND TREATED LOW MAG, LOW PHOS, AND CL POTASSIUM. PT IS SITTING UP ON EDGE OF BED RESTING QUIETLY PT DENIES ANY FURTHER NEEDS AT THIS TIME. CL IN REACH, BED IN LOWEST, SIDE RAILS X2. WILL CPOC.
--- NOTE | 2016-06-08 07:15 | NUR ---
RECEIVED REPORT. ASSUMED CARE OF PATIENT. RESTING WITH EYES CLOSED. EASILY AROUSED. RESP EVEN AND UNLABORED. CALL LIGHT WITHIN REACH. NO DISTRESS.
--- NOTE | 2016-06-08 08:10 | NUR ---
MEDICATED FOR NAUSEA AT THIS TIME. NO DISTRESS.
--- NOTE | 2016-06-08 08:28 | NUR ---
K+ SUPPLEMENT #2 ADMINISTERED AT THIS TIME.
--- NOTE | 2016-06-08 10:11 | OP ---
PATIENT NAME: CHARLEY FLOOD MEDICAL RECORD: [id number] :52 LOCATION:D.M2 D.2138 ADMISSION DATE:05/31/16 SURGEON: YARI LUCERO MD DATE OF OPERATION: 06/06/2016 SURGEON: Yari Lucero MD PROCEDURE: Laparoscopic cholecystectomy. PREOPERATIVE DIAGNOSES: 1. Pancreatitis. 2. Gallbladder polyp. POSTOPERATIVE DIAGNOSES: 1. Pancreatitis. 2. Gallbladder polyp. PROCEDURE PERFORMED: Laparoscopic cholecystectomy. ANESTHESIA: General. COMPLICATIONS: None. SPECIMENS: Gallbladder. Case was clean contaminated. ESTIMATED BLOOD LOSS: 40 cc. COMPLICATIONS: None. OPERATIVE COURSE: After consent was obtained, the patient was taken to the operating room and placed in the supine position on the operating table. Next, general anesthesia was given via endotracheal intubation after a timeout was taken to confirm the correct patient and procedure. Next, the abdomen was prepped and draped in typical sterile fashion. Local anesthetic was injected just above the umbilicus. Using a 5-mm bladeless optical trocar, the abdomen was entered under direct laparoscopic vision. Adequate pneumoperitoneum was achieved. The abdominal cavity was inspected. No evidence of bowel injury. No evidence of bleeding. The patient was then placed in the steep reverse Trendelenburg position. All remaining trocars were then placed after the administration of local anesthetic under direct laparoscopic vision, two 5-mm trocars in the right upper quadrant and 11-mm trocar in the subxiphoid position. The fundus of the gallbladder was grasped and retracted cephalad. The infundibulum was grasped and retracted laterally. The peritoneum was incised using electrocautery. Blunt dissection was performed with a [place] dissector until the critical view was obtained. The cystic artery medial, cystic duct lateral, liver in the posterior window. Two clips were placed in the proximal cystic artery, one clip distal. Three clips were placed in the proximal cystic duct, one clip distal. The duct and artery were transected with laparoscopic Metzenbaum scissors. The remaining portion of the gallbladder was dissected from the liver bed using electrocautery. Once dissected, it was grasped with the tenaculum and removed through the 11-mm trocar and sent for permanent pathology. The operative site was then copiously irrigated and suctioned. Careful attention was paid to hemostasis, which was obtained in the liver bed OPERATIVE REPORT [id number] ADAMS using electrocautery. Abdominal cavity was copiously irrigated and suctioned. The abdominal cavity was inspected. No evidence of bowel injury. No evidence of bleeding. No evidence of bile leak. There were [address] in the cystic duct, [address] in the cystic artery. At this time, all remaining instruments were removed. The abdomen was desufflated. Trocars were removed. Skin was closed with 4-0 Monocryl, Mastisol and Steri-Strips. At the end of the case, all needle and instrument counts were correct. No complications occurred. The patient was extubated and transferred to the PACU in stable condition. TRANSINT:[id number] Voice Confirmation ID: [id number] DOCUMENT ID: [id number] YARI LUCERO MD at 1011 CC: [id number] DICTATION DATE: 06/06/16 1426 ASSISTANT PROFESSOR OF PHYSICS: 06/06/16 1514 ADM IN [id number] [place] [address]
--- NOTE | 2016-06-08 12:07 | NUR ---
K+ SUPPLEMENT #3 ADMINISTERED AT THIS TIME. NO DISTRESS.
--- NOTE | 2016-06-08 18:24 | NUR ---
PATIENT RESTING IN BED WITH EYES CLOSED, EASILY AROUSED. RESP EVEN AND UNLABORED. CALL LIGHT WITHIN REACH. DENIES NEEDS. NO DISTRESS.
--- NOTE | 2016-06-08 20:00 | NUR ---
PT AWAKE, ALERT, ORIENTED, SITTING ON SIDE OF BED WANTING TO BE UNHOOKED FROM IV SO HE CAN TAKE A SHOWER. PT DENIES ANY NEEDS, STATES HE IS FEELING BETTER AND MAY BE ABLE TO GO HOME TOMORROW. CONTINUE TO MONITOR CLOSELY. I DID UNHOOK PTS IV PER REQUEST.
[2016-06-09] VITALS: BP 96/59
[2016-06-09 04:00] VITALS: BP 98/57
[2016-06-09 05:17] LABS: BASOPHILS 0.1 % (0.0-2.0); EOSINOPHILS 0.5 % (0-7); HEMATOCRIT 24.3 % (42.0-54.0); HEMOGLOBIN 8.3 g/dL (13.5-17.5); IMMATURE GRANULOCYTES 0.4 % (0-5); LYMPHOCYTES 12.9 % (15-50); MCH 30.2 pg (26.0-34.0); MCHC 34.2 g/dL (31.0-37.0); MCV 88.4 fL (80.0-100.0); MEAN PLATELET VOLUME 9.2 fL (7.4-10.4); MONOCYTES 6.4 % (2-11); NEUTROPHILS 79.7 % (40-80); PLATELET COUNT 247 10x3/uL (130-400); RBC 2.75 10x6/uL (4.20-6.10); RDW 15.7 % (11.5-14.5); WBC 11.1 10x3/uL (4.8-10.8)
[2016-06-09 05:43] LABS: CALC OSMOLALITY 265 mosm/kg (275-300); CALCIUM 7.7 mg/dL (8.5-10.1); CARBON DIOXIDE 30.2 mmol/L (21.0-32.0); CHLORIDE - SERUM 99 mmol/L (98-107); CREATININE - SERUM 0.6 mg/dL (0.6-1.3); GLUCOSE 101 mg/dL (74-106); SODIUM 134 mmol/L (136-145); UREA NITROGEN 8 mg/dL (7-18); eGFR NON AFRICAN AMERICAN > 90 mL/min (90-120)
--- NOTE | 2016-06-09 05:44 | NUR ---
PT LYING IN BED, EYES CLOSED, RESPIRATIONS EVEN AND UNLABORED. PT IS EASILY ROUSABLE TO VERBAL STIMULI. DENIES ANY NEEDS. CONTINUE TO MONITOR CLOSELY. BED LOW, CALL LIGHT IN REACH, SIDE RAILS X 2, HOB 30 DEGREES.
[2016-06-09 05:46] LABS: POTASSIUM - SERUM 2.9 mmol/L (3.5-5.1)
[2016-06-09 08:00] VITALS: BP 107/59
--- NOTE | 2016-06-09 08:45 | NUR ---
PT REC'D 20MEQ K PER REPLACEMENT PROTOCOL. THIS IS DOSE 2/3. MIXED WITH APPLE JUICE REQUESTED. NO FURTHER NEEDS. WILL CTM.
[2016-06-09 09:05] VITALS: BP 94/57
--- NOTE | 2016-06-09 10:45 | NUR ---
K+ REPLACED PER PROTOCOL, DOSE 3/3 WILL ORDER REDRAW LAB FOR 4HRS AFTER THIS DOSE PER PROTOCOL. PT ALSO REC'D MAG REPLACEMENT, 400MG THIS IS DOSE 2/4 PER ELECTROLYTE PROTOCOL. PT SITTING UP IN BED VISITING WITH FAMILY. NO FURTHER NEEDS AT THIS TIME. WILL CTM.
[2016-06-09 11:59] VITALS: BP 94/49
--- NOTE | 2016-06-09 13:06 | NUR ---
PT RESTING QUIETLY IN BED WITH FAMILY AT BEDSIDE. RR NONLABORED ON RA. DISCONNECTED PT FROM IV FLUID IT WAS DISCONTINUED FROM THE DOCTOR. PTS LQUAN PIV HAS DRSG CDI AND SWAB CAPS IN USE. PT DENIES ANY CURRENT PAIN OR NEEDS. CL IN REACH. WILL CTM.
--- NOTE | 2016-06-09 14:49 | NUR ---
MAG REPLACED AGAIN. DOSE 3/4. PT RESTING QUIETLY IN BED AND DENIES ANY CURRENT NEEDS OR PAIN. CL IN REACH. WILL CTM.
[2016-06-09 15:46] VITALS: BP 132/70
--- NOTE | 2016-06-09 17:48 | NUR ---
PTS K LEVEL RECHECK IS UP TO 4.0. NO FURTHER REPLACEMENT REQUIRED AT THIS TIME. WILL CTM.
--- NOTE | 2016-06-09 18:37 | NUR ---
PT REC'D LAST MAG REPLACEMENT. DOSE 08/26. RECHECK LAB LEVEL ORDERED FOR 4HRS AFTER LAST DOSE PER PROTOCOL. PT RESTING QUIETLY AND DENIES ANY CURRENT NEEDS AT THIS TIME. CL IN REACH. WILL CTM.
--- NOTE | 2016-06-09 22:04 | NUR ---
NURSE ROUNDS 21:00 - PT AWAKE, ALERT, ORIENTED, AMBULATING AROUND UNIT WITH WALKER WITHOUT DIFFICULTY. PT DENIES ANY NEEDS. CONTINUE TO MONITOR CLOSELY.
--- NOTE | 2016-06-09 22:44 | NUR ---
PT LYING IN BED, EYES CLOSED, RESPIRATIONS EVEN AND UNLABORED. HOB 30 DEGREES, CALL LIGHT IN REACH, SIDE RAILS X 2, BED LOW.
[2016-06-10] VITALS: BP 109/60
--- NOTE | 2016-06-10 00:02 | NUR ---
PT UP, ALERT, ORIENTED, WALKING AROUND UNIT WITH WALKER. PT DENIES ANY NEEDS, STATES IT FEELS GOOD TO WALK AND STRETCH. CONTINUE TO MONITOR CLOSELY.
--- NOTE | 2016-06-10 02:37 | NUR ---
PTS IV INFILTRATED IN LEFT FOREARM. IV D/C'D WITH CATH TIP INTACT. WILL HOLD OFF ON RESITING RIGHT NOW. PT IS AWAKE, ALERT, ORIENTED, HAVING ABDOMINAL DISCOMFORT R/T LAP KELSEY. CONTINUE TO MONITOR CLOSELY.
[2016-06-10 05:52] LABS: BASOPHILS 0.1 % (0.0-2.0); EOSINOPHILS 0.6 % (0-7); HEMATOCRIT 26.2 % (42.0-54.0); HEMOGLOBIN 8.7 g/dL (13.5-17.5); IMMATURE GRANULOCYTES 0.2 % (0-5); LYMPHOCYTES 12.8 % (15-50); MCHC 33.2 g/dL (31.0-37.0); MCV 90.3 fL (80.0-100.0); MEAN PLATELET VOLUME 9.6 fL (7.4-10.4); NEUTROPHILS 80.3 % (40-80); RDW 15.2 % (11.5-14.5); WBC 10.9 10x3/uL (4.8-10.8)
[2016-06-10 06:02] LABS: PLATELET COUNT 316 10x3/uL (130-400)
[2016-06-10 06:23] LABS: CALC OSMOLALITY 275 mosm/kg (275-300); CALCIUM 8.6 mg/dL (8.5-10.1); CARBON DIOXIDE 33.2 mmol/L (21.0-32.0); CHLORIDE - SERUM 100 mmol/L (98-107); CREATININE - SERUM 0.7 mg/dL (0.6-1.3); GLUCOSE 111 mg/dL (74-106); POTASSIUM - SERUM 4.8 mmol/L (3.5-5.1); SODIUM 138 mmol/L (136-145); UREA NITROGEN 9 mg/dL (7-18); eGFR NON AFRICAN AMERICAN > 90 mL/min (90-120)
[2016-06-10 07:46] VITALS: BP 101/63
--- NOTE | 2016-06-10 09:10 | NUR ---
ADMINISTERED AM MEDICATIONS. ALSO ADMINISTERED MAG OXIDE REPLACEMENT MED FOR LOW MAG OF 1.5. PT IS SITTING UP IN BEDSIDE CHAIR. ALERT AND ORIENTED RESTING QUIETLY. PT HOPES TO BE DISCHARGED TODAY. STATES HIS PAIN HAS BEEN SO MUCH BETTER AND HE IS READY TO GO. PT HAS BEEN AMBULATING WELL ON HIS OWN WITH A WALKER. PT DENIES ANY CURRENT PAIN OR NEEDS. CL IN REACH. WILL CTM.
[2016-06-10 11:37] VITALS: BP 102/51
[2016-06-10] MEDS ORDERED: FERREX 150 PLUS1 CAP PO (12:32)
[2016-06-10] MEDS ORDERED: ZOFRAN ODT4 MG/UDTAB PO (12:32)
--- NOTE | 2016-06-10 13:08 | NUR ---
DISCHARGE PAPERS SIGNED AND TEACHING COMPLETED. PT WAITING ON HIS NEIGHBOR TO COME PICK HIM UP. DENIES ANY QUESTIONS OR FURTHER NEEDS. CL IN REACH. WILL CTM.
--- NOTE | 2016-06-10 13:26 | NUR ---
PT LEAVING FLOOR WITH TRANSPORTER. NO FURTHER NEEDS.
== END 2016-06-10 13:28 | disposition home or self-care (01) | DRG 418 ==
LOC: D.ER 22:05 → D.M2 05-31 00:19
PROVIDERS: Emergency Medicine; Family Medicine; Internal Medicine; Surgery; ADMIT Family Medicine Adult Medicine
PROC: 0FT44ZZ Resection of Gallbladder, Percutaneous Endoscopic Approach (ICD-10-PCS; principal; 2016-06-06 10:45)
DX: K85.90 Acute pancreatitis without necrosis or infection, unspecified (principal); N17.9 Acute kidney failure, unspecified; F17.203 Nicotine dependence unspecified, with withdrawal; R55 Syncope and collapse; R11.2 Nausea with vomiting, unspecified; R10.9 Unspecified abdominal pain; J44.9 Chronic obstructive pulmonary disease, unspecified; K82.4 Cholesterolosis of gallbladder

== ENCOUNTER 2016-06-12 19:01 | Observation (INO) | payer MEDICARE, MEDICAID ==
[~2016-06-12] VITALS: Ht 180.3 cm; Wt 59.1 kg
[~2016-06-12 19:01] MED LIST: FERREX 150 PLUS1 CAP PO; HYDROCODONE-APA1 TAB PO; MORPHINE SULFAT60 M5 PO; OXYCODONE HCL5 MG PO; ZANAFLEX4 MG PO; ZOFRAN ODT4 MG/UDTAB PO
[2016-06-12 19:33] LABS: BASOPHILS 0.1 % (0.0-2.0); EOSINOPHILS 0.1 % (0-7); HEMATOCRIT 26.8 % (42.0-54.0); HEMOGLOBIN 8.5 g/dL (13.5-17.5); IMMATURE GRANULOCYTES 0.2 % (0-5); LYMPHOCYTES 10.9 % (15-50); MCHC 31.7 g/dL (31.0-37.0); MCV 94.7 fL (80.0-100.0); MONOCYTES 7.8 % (2-11); NEUTROPHILS 80.9 % (40-80); PLATELET COUNT 376 10x3/uL (130-400); RBC 2.83 10x6/uL (4.20-6.10); RDW 14.7 % (11.5-14.5); WBC 8.8 10x3/uL (4.8-10.8)
[2016-06-12 19:48] LABS: ALBUMIN 2.3 g/dL (3.4-5.0); ALKALINE PHOSPHATASE 61 U/L (46-116); ALT (SGPT) 47 U/L (10-68); CALC OSMOLALITY 278 mosm/kg (275-300); CALCIUM 8.6 mg/dL (8.5-10.1); CARBON DIOXIDE 35.7 mmol/L (21.0-32.0); CHLORIDE - SERUM 98 mmol/L (98-107); CREATININE - SERUM 0.8 mg/dL (0.6-1.3); GLUCOSE 117 mg/dL (74-106); PROTEIN - SERUM 5.9 g/dL (6.4-8.2); SODIUM 138 mmol/L (136-145); UREA NITROGEN 18 mg/dL (7-18); eGFR NON AFRICAN AMERICAN > 90 mL/min (90-120)
[2016-06-12 20:09] LABS: AMYLASE - SERUM 23 U/L (25-115); LIPASE 78 U/L (73-393); PRO BNP 3049 pg/mL (0-125)
[2016-06-12 20:10] LABS: CREATINE KINASE 1278 UL (21-232)
[2016-06-12 20:11] LABS: TROPONIN-I 0.129 ng/mL (0.000-0.060)
[2016-06-12 20:13] LABS: CKMB 3.5 U/L (0.0-3.6)
[2016-06-13] VITALS: BP 101/64
--- NOTE | 2016-06-13 01:21 | NUR ---
REC'D TO ROOM 2218 FROM ER DEPT PER STRETCHER A 66 Y/O W/M PER SERVICES DR. YATES WITH DX RT FLANK HEMATOMA. ALLERGY=ASA. SALINE LOCK PATENT RT ARM SITE CLEAR. SR UP X2 CALL LIGHT WITHIN REACH. TELM. PLACED ON PATIENT SHOWS SR. JOHN BED ALARM MAT PLACED ON BED. LARGE PURPLE BRUISE NOTED RT FLANK AREA COVERING TOWARDS SPINAL AREA AND ENTIRE RT BUTTOCK CHEEK. PT IS ALERT AND ORIENTED X3 ASSESSMENT PER ADMIT PACKET.
[2016-06-13 01:37] VITALS: BP 106/68; Ht 180.3 cm; Wt 59.1 kg
--- NOTE | 2016-06-13 02:15 | NUR ---
DR. YI PLACED ORDERS INTO COMPUTER FOR A BLOOD TRANSFUSION. WILL NEED TO BE TYPED AND CROSSED.
--- NOTE | 2016-06-13 03:55 | NUR ---
C/P PAIN AND NAUSEA. NOTIFIED DR. YI FOR ORDERS REC'D. DILAUDID 1MG IVP GIVEN AND ZOFRAN 4MG IVP GIVEN FOR RELIEF.
--- NOTE | 2016-06-13 04:40 | NUR ---
RADIO SURVEY WORKER HERE TO DRAW BLOOD WORK AND PT'S TYPE AND CROSS. EKG DONE BY RT TECH.
[2016-06-13 05:04] VITALS: BP 106/68
--- NOTE | 2016-06-13 07:38 | NUR ---
AWAKE ALERT COLOR ADQ SKIN WARM AND DRY NPO FOR X-RAYS TODAY STERI STRIPS IN PLACE TO ABD RT SIDE INCLUDING PART OF ABD TO AMAN DISCOLORED AT PRESENT LARGE BRUISED AREA.
[2016-06-13 08:04] VITALS: BP 97/61
[2016-06-13 08:40] LABS: BASOPHILS 0 % (0.0-2.0); EOSINOPHILS 0.1 % (0-7); HEMATOCRIT 27.5 % (42.0-54.0); HEMOGLOBIN 8.6 g/dL (13.5-17.5); IMMATURE GRANULOCYTES 0.3 % (0-5); LYMPHOCYTES 3.6 % (15-50); MCH 29.6 pg (26.0-34.0); MCHC 31.3 g/dL (31.0-37.0); MCV 94.5 fL (80.0-100.0); MEAN PLATELET VOLUME 9.3 fL (7.4-10.4); MONOCYTES 1.4 % (2-11); NEUTROPHILS 94.6 % (40-80); PLATELET COUNT 368 10x3/uL (130-400); RBC 2.91 10x6/uL (4.20-6.10); RDW 14.6 % (11.5-14.5); WBC 7.3 10x3/uL (4.8-10.8)
--- NOTE | 2016-06-13 09:00 | NUR ---
VS NEW ORDERS R/N AT PRESENT. CONT OLD BRUISED AREA TO RT SIDE STREI STRIPS IN PLACE DRY WITH OLD BLOOD NOTED.
--- NOTE | 2016-06-13 11:00 | NUR ---
WATCHING TV QUIETLY AT PRESENT N/C AT PRESENT.
[2016-06-13] MEDS ORDERED: BAYER CHEWABLE81 MG PO (12:12)
[2016-06-13 12:35] VITALS: BP 91/61
--- NOTE | 2016-06-13 13:00 | NUR ---
SLEEPING QUIETLY AT PRESENT N/C AT PRESENT.
--- NOTE | 2016-06-13 13:31 | NUR ---
Patient Name: CHARLEY FLOOD Admission Status: ER Accout number: [id number] Admission Date: 06-12-2016 : 1950 Admission Diagnosis:POSTPROC HEMATOMA OF A DGSTV SYS ORG FOL OTHER PROCEDUR Attending: ANA LAURA Current LOS: 1 Anticipated DC Date: 06-13-2016 Planned Disposition: Home with Home Health Primary Insurance: [facility] Discharge Planning Comments: CM MET WITH PATIENT REGARDING D/C NEEDS AND PLANS. PATIENT STATED HE LIVES ALONE AND HIS DAUGHTER (JESSICA OGNZALES) WILL PICK HIM UP AT DISCHARGE. PATIENT IS INDEPENDENT WITH HIS CARE AND HAS NO DME AT HOME. PATIENTS PCP IS DR. ERNANDEZ AND PHARMACY IS [facility] ON [facility]. PATIENT HAS 5 STEPS W/RAILS TO ENTER HOME AND NO STAIRS INSIDE. PATIENT IS CURRENT WITH [facility]. PATIENT WILL DISCHARGE TODAY AND WILL HAVE LAB DRAWN THURSDAY BY . CM WILL CONTINUE TO FOLLOW PATIENT WITH D/C NEEDS AND PLANS. PCP DR. OMA CRUZ ON [facility]- [phone] JESSICA GONZALES (DAUGHTER) [phone] [facility]- [phone] Screen Cutter And Trimmer: Kim Aguero Is the patient Alert and Oriented? Yes 0 * How many steps to enter\exit or inside your home? 5 W/RAILS 0 * PCP DR. ERNANDEZ 0 * Pharmacy [facility] 0 * Preadmission Environment Home Alone 0 * ADLs Independent 0 * Equipment None 0 * List name and contact numbers for known caregivers / representatives who currently or will assist patient after discharge: CHANTE GONZALES (DAUGHTER) [phone] * Community resources currently utilized Home Health 0 * Please name any agencies selected above. CURRENT WITH [facility] 0 * Additional services required to return to the preadmission environment? Yes 0 * Can the patient safely return to the preadmission environment? Yes 0 * Has this patient been hospitalized within the prior 30 days at any hospital? Yes 0 Grand Total: 0
--- NOTE | 2016-06-13 13:44 | NUR ---
WATCHING TV QUIETLY AT PRESENT N/C AT PRESENT.
--- NOTE | 2016-06-13 15:27 | NUR ---
DISCHARGE ORDERS GONE OVER WITH PT AND DAUGHTER DEMONSTRATES UNDERSTANDING AT PRESENT.LET VIA W/C IV DCD CATH INTACT SITE CLEAN AND DRY WITHOUT REDDNESS OR EDEMA NOTED AT PRESENT.
--- NOTE | 2016-06-18 14:16 | EC ---
PATIENT:CHARLEY FLOOD DATE OF SERVICE: 06/12/16 SEX: M MEDICAL RECORD: [id number] DATE OF : [birth year] LOCATION:[facility] AGE OF PATIENT: 66 ADMISSION DATE: 06/12/16 REFERRING PHYSICIAN: INTERPRETING PHYSICIAN: ANSHU YEN MD ECHOCARDIOGRAM REPORT ECHO CHARGES 4 ECHO COMPLETE CLINICAL DIAGNOSIS: EDEMA/ WI ECHOCARDIOGRAPHIC MEASUREMENTS (adult normal given) AC root (d.<3.7cm) 2.7 LV Septum d (<1.2 cm> 1.3 Valve Excursion 1.7 LV Septum (systole) 1.4 Left Atria (s.<4.0cm> 3.5 LVPW d(<1.2cm) 1.4 RV (d.<2.3cm) 3.5 LVPW (sytole) 1.5 LV diastole(<5.6CM) 5.9 MV E-F(>70mm/sec) LV systole 4.9 LVOT Diameter 1.7 MV exc.(>10mm) 1.9 Est.ejection fraction (50-75%) Pericardial Effusion N DOPPLER: LVIT A 113 E 126 LA RVSP 46 LVOT 115 AOP1/2T Asc. Ao 153 RVOT 101 RA PA 158 AV Gradient Peak 9.41 AV Mean 5.28 AV Area 2.0 MV Gradient Peak 5.77 MV Mean 2.77 MV Area COMMENTS: Hoop Riveter: Ori AYON Digital Engineer:Inessa Quintero TAPE# PACS DATE OF SERVICE: 06/13/2016 Adequate 2D echo, color flow and spectral Doppler and M-Mode. LVH is present. LV internal dimensions are normal. Wall motion is normal. EF is greater than 55%. Aortic valve sclerosis without stenosis by Doppler interrogation. The left atrium is normal at 3.5 cm. The mitral valve shows no prolapse. Trace MR. Right-sided is normal. Mild TR. TRANSINT:[id number] Voice Confirmation ID: [id number] DOCUMENT ID: [id number] ECHOCARDIOGRAM REPORT [id number] CHARLEY FLOOD ANSHU YEN MD at 1416 CC: [id number] DICTATION DATE: 06/15/16 1058 LOWER IN SUPERVISOR: 06/15/16 2347 DIS IN 06/13/16 [facility] [address] [facility] [place] [address]
--- NOTE | 2016-08-02 09:18 | DS ---
PATIENT:CHARLEY FLOOD :[birth year] MEDICAL RECORD: [id number] DISCHARGE SUMMARY ADMISSION DATE: 06/12/16 DISCHARGE DATE: 06/13/16 DATE OF ADMISSION: 06/12/2016. DATE OF DISCHARGE: 06/13/2016. ADMITTING DIAGNOSES: Abdominal pain, hemoperitoneum, chronic obstructive pulmonary disease and nicotine dependence. POSTOPERATIVE DIAGNOSES: Abdominal pain, hemoperitoneum, chronic obstructive pulmonary disease and nicotine dependence. ADMITTING PHYSICIAN: Yari Lucero MD. DISCHARGE PHYSICIAN: Yari Lucero MD HOSPITAL COURSE: This is a 66-year-old male who came back to the hospital after a laparoscopic cholecystectomy with abdominal pain. The patient had developed a postoperative hematoma, which was stable. The night of admission a repeat CT scan was performed, which showed a stable unchanged hematoma. His H&H was stable. He was admitted for abdominal pain and monitoring. The following morning again a repeat H&H was performed, which showed no changes. The patient was treated with IV narcotics for pain control. For his chest pain, cardiac enzymes and EKG were performed. He was cleared by cardiology. At this time, he was discharged home with follow up with his legal instruments examiner as well as his pre-arranged date for his IR drainage of this hematoma. DISCHARGE DIAGNOSES: Retroperitoneal hematoma, abdominal pain, chronic obstructive pulmonary disease, nicotine dependence. DISCHARGE DIET: As tolerated, no restrictions. DISCHARGE ACTIVITY: As tolerated. No strenuous activity or heavy lifting. DISCHARGE DIET: As tolerated, no restrictions. DISCHARGE FOLLOWUP: Dr. Lucero in 2 weeks. The patient to follow up for previously scheduled IR appointment for CT-guided drainage. The patient to follow up with his legal instruments examiner in 2-4 weeks as well as his primary care physician in 2-4 weeks. TRANSINT:[id number] Voice Confirmation ID: [id number] DOCUMENT ID: [id number] YARI LUCERO MD at 0918 CC: [id number] DICTATION DATE: 08/01/16 1355 FARM LOAN INSPECTOR: 08/02/16 0133 DIS IN 06/13/16 [place] [address]
== END 2016-06-13 15:29 | disposition home or self-care (01) ==
LOC: D.ER 19:01 → D.MS 23:52 → D.ER 23:52 → OBSVTIME 23:52 → D.MS 23:52
PROVIDERS: Family Medicine; Surgery; ADMIT Surgery
DX: K91.871 Postprocedural hematoma of a digestive system organ or structure following other procedure (principal); K66.1 Hemoperitoneum; D62 Acute posthemorrhagic anemia; Y83.9 Surgical procedure, unspecified as the cause of abnormal reaction of the patient, or of later complication, without mention of misadventure at the time of the procedure; J44.9 Chronic obstructive pulmonary disease, unspecified; R79.89 Other specified abnormal findings of blood chemistry; F17.200 Nicotine dependence, unspecified, uncomplicated

== ENCOUNTER → 2016-06-24 09:23 | Outpatient (CLI) | payer MEDICARE, MEDICAID ==
[2016-06-13 01:37] VITALS: BMI 18.1
[~2016-06-24 09:23] MED LIST changes: +BAYER CHEWABLE81 MG PO
== END | disposition home or self-care (01) ==
LOC: D.CT 06-17 09:00
DX: R10.11 Right upper quadrant pain (principal)

== ENCOUNTER 2016-07-16 05:46 | Outpatient (CLI) | payer MEDICARE, MEDICAID ==
[~2016-07-16] VITALS: Ht 180.3 cm; Wt 56.8 kg
[2016-07-16 07:07] LABS: APTT 28.5 SECONDS (22.8-39.4); INR 0.94 (0.85-1.17); PROTIME 12.5 SECONDS (11.6-15.0)
[2016-07-16 07:08] LABS: CALC OSMOLALITY 271 mosm/kg (275-300); CALCIUM 9.3 mg/dL (8.5-10.1); CARBON DIOXIDE 32.6 mmol/L (21.0-32.0); CHLORIDE - SERUM 100 mmol/L (98-107); CREATININE - SERUM 0.8 mg/dL (0.6-1.3); GLUCOSE 85 mg/dL (74-106); POTASSIUM - SERUM 3.9 mmol/L (3.5-5.1); SODIUM 137 mmol/L (136-145); UREA NITROGEN 11 mg/dL (7-18); eGFR NON AFRICAN AMERICAN > 90 mL/min (90-120)
[2016-07-16 07:22] VITALS: BP 97/58; Ht 180.3 cm; Wt 56.8 kg
[2016-07-16 08:02] LABS: BASOPHILS 0.9 % (0.0-2.0); EOSINOPHILS 1.9 % (0-7); HEMATOCRIT 41.1 % (42.0-54.0); HEMOGLOBIN 12.8 g/dL (13.5-17.5); IMMATURE GRANULOCYTES 0.2 % (0-5); LYMPHOCYTES 31.3 % (15-50); MCH 29.2 pg (26.0-34.0); MCHC 31.1 g/dL (31.0-37.0); MCV 93.8 fL (80.0-100.0); MEAN PLATELET VOLUME 10.4 fL (7.4-10.4); NEUTROPHILS 56.7 % (40-80); PLATELET COUNT 304 10x3/uL (130-400); RBC 4.38 10x6/uL (4.20-6.10); RDW 15.6 % (11.5-14.5); WBC 5.8 10x3/uL (4.8-10.8)
--- NOTE | 2016-07-16 11:17 | NUR ---
1110 DR. LUCERO ROUNDS ON PT.
[2016-07-16 13:37] LABS: LYMPH - BF 2 %; NEUT - BF 98 %
== END 2016-07-16 12:05 | disposition home or self-care (01) ==
LOC: D.OPS 05:46 → D.CT 08:00 → D.OPS 08:00 → D.CT 07-17 15:00
PROVIDERS: Radiology Diagnostic Radiology
DX: K76.89 Other specified diseases of liver (principal)

== ENCOUNTER → 2016-07-21 07:49 | Outpatient (CLI) | payer MEDICARE, MEDICAID ==
[~2016-07-21] VITALS: Ht 180.3 cm; Wt 61.4 kg
[2016-07-21 08:44] LABS: BASOPHILS 0.5 % (0.0-2.0); EOSINOPHILS 1.7 % (0-7); HEMOGLOBIN 12.4 g/dL (13.5-17.5); LYMPHOCYTES 26.6 % (15-50); MCV 93.5 fL (80.0-100.0); MEAN PLATELET VOLUME 10.3 fL (7.4-10.4); MONOCYTES 7.7 % (2-11); NEUTROPHILS 63.5 % (40-80); PLATELET COUNT 279 10x3/uL (130-400); RBC 4.28 10x6/uL (4.20-6.10); RDW 15.8 % (11.5-14.5); WBC 5.8 10x3/uL (4.8-10.8)
[2016-07-21 08:59] LABS: CALC OSMOLALITY 278 mosm/kg (275-300); CALCIUM 8.8 mg/dL (8.5-10.1); CARBON DIOXIDE 30.8 mmol/L (21.0-32.0); CHLORIDE - SERUM 104 mmol/L (98-107); CREATININE - SERUM 0.7 mg/dL (0.6-1.3); POTASSIUM - SERUM 3.5 mmol/L (3.5-5.1); SODIUM 141 mmol/L (136-145); UREA NITROGEN 13 mg/dL (7-18); eGFR NON AFRICAN AMERICAN > 90 mL/min (90-120)
[2016-07-21 09:02] LABS: GLUCOSE 69 mg/dL (74-106)
[2016-07-21 09:07] LABS: APTT 29.1 SECONDS (22.8-39.4); INR 0.99 (0.85-1.17); PROTIME 12.9 SECONDS (11.6-15.0)
[2016-07-21 09:28] VITALS: BP 99/56; Ht 180.3 cm; Wt 61.4 kg
--- NOTE | 2016-07-21 09:56 | NUR ---
0945 JOSH NOTIFIED OF NO H & P. ELVIA ARELLANO, RADIOLOGY NURSE.
== END | disposition home or self-care (01) ==
LOC: D.OPS 07:49 → D.CT 09:30
PROVIDERS: Radiology Diagnostic Radiology
DX: R18.8 Other ascites (principal)

== ENCOUNTER → 2017-03-19 11:49 | Outpatient (CLI) | payer MEDICARE, MEDICAID ==
[2016-07-21 09:28] VITALS: BMI 18.8
[2017-03-19 12:35] LABS: ALBUMIN 3.7 g/dL (3.4-5.0); BILIRUBIN - DIRECT 0.08 mg/dL (0.00-0.30); BILIRUBIN - INDIRECT 0.27 mg/dL (0.00-1.00); BILIRUBIN - TOTAL 0.35 mg/dL (0.2-1.3)
== END | disposition home or self-care (01) ==
LOC: D.LAB 11:49
PROVIDERS: Surgery
DX: D12.2 Benign neoplasm of ascending colon (principal); R19.09 Other intra-abdominal and pelvic swelling, mass and lump

== ENCOUNTER → 2017-04-01 10:17 | Outpatient (CLI) | payer MEDICARE, MEDICAID ==
[2016-07-21 09:28] VITALS: BMI 18.8
== END | disposition home or self-care (01) ==
LOC: D.CT 03-25 11:30
DX: R19.09 Other intra-abdominal and pelvic swelling, mass and lump (principal)

== ENCOUNTER 2017-04-08 05:10 | Inpatient (IN) | payer MEDICARE, MEDICAID ==
[2017-04-07 13:11] LABS: HEMATOCRIT 46.4 % (42.0-54.0); MCH 33.1 pg (26.0-34.0); MCHC 34.5 g/dL (31.0-37.0); MCV 95.9 fL (80.0-100.0); RBC 4.84 10x6/uL (4.20-6.10); RDW 13.6 % (11.5-14.5); WBC 6.2 10x3/uL (4.8-10.8)
[~2017-04-08] VITALS: Ht 180.3 cm; Wt 62.6 kg
[2017-04-08 07:19] VITALS: BP 117/70; BMI 14.0
--- NOTE | 2017-04-08 11:57 | NUR ---
1025 DR CINTRON HERE TO INSERT EDMOND CATHETER VIA CYSTOSCOPY 10[address] BY [address] CINTRON
--- NOTE | 2017-04-08 13:17 | NUR ---
DR CROUCH CONSULTED ABOUT THE PATIENTS PAIN LEVEL. NO MORE NARCOTICS ORDERED. THE PATIENT MAY BE DISCHARGED AND PLACED ON A MARKETING DATA SPECIALIST UPON ARRIVAL TO FLOOR
--- NOTE | 2017-04-08 14:29 | OP ---
PATIENT NAME: CHARLEY FLOOD MEDICAL RECORD: [id number] :52 [facility] [place] DATE:04/08/17 SURGEON: VENKAT CINTRON MD DATE OF OPERATION: 04/08/2017 SURGEON: Venkat Cintron MD ANESTHESIA: General anesthesia. PREOPERATIVE DIAGNOSES: Colon cancer, inability to be catheterized. PROCEDURES: Cystoscopy, insertion of Covarrubias catheter over a guidewire. FINDINGS: False passage in bulbar urethra, to the left of the true lumen. SPECIMENS: None. COMPLICATIONS: None. ESTIMATED BLOOD LOSS: Minimal. CLINICAL HISTORY: This is a 66-year-old male with an endoscopically discovered colon tumor. Dr. Chamorro is about to perform surgery on the colon. The patient is in lithotomy position and he has been prepped and draped. He is under general anesthetic. IV antibiotics have been given to him. The OR team could not get a catheter into the patient. Therefore, they asked for urology consultation to come in and insert a catheter. DESCRIPTION OF PROCEDURE: I used a 21-Singaporean cystoscope with normal saline irrigation. A 30-degree lens was used for visualization. There was gross blood coming out of the urethral meatus at the present time. Going in with the scope, the penile urethra was intact until we reached the bulbar urethra, at which point, I noticed a false passage through the urethra. The false passage is to the left of the true lumen. Going into the true lumen, the prostate itself is not obstructive. He does have a tight bladder neck. Going into the bladder, there was quite a bit of bloody urine in there, which made visualization difficult. A Sensor wire was placed through the scope into the bladder. Once the wire was in the bladder under direct vision, the scope was removed, leaving the wire in place. Over the wire, we placed a 16-Singaporean menominee tip Covarrubias catheter. Once it was fully in the bladder with the urethral meatus up against the hub of the catheter, I then inflated the Covarrubias balloon with 10 cc of sterile water. We had good drainage out of the catheter. Finally, the guidewire was entirely removed. The catheter was put to bag drainage. Dr. Chamorro can now carry on with his surgery. The catheter should stay in for about a period of 1 week and then be removed. TRANSINT:[id number] Voice Confirmation ID: [id number] DOCUMENT ID: [id number] OPERATIVE REPORT [id number] CHARLEY FLOOD ROBERT S MD at 1429 CC: [id number] DICTATION DATE: 04/08/17 1040 SHELLFISH BED WORKER: 04/08/17 1054 ADM IN [facility] [address] [id number]
--- NOTE | 2017-04-08 15:52 | OP ---
PATIENT NAME: CHARLEY FLOOD MEDICAL RECORD: [id number] :52 LOCATION:[facility] [place] ADMISSION DATE:04/08/17 SURGEON: YARI LUCERO MD DATE OF OPERATION: 04/08/2017 SURGEON: Yari Lucero MD PREOPERATIVE DIAGNOSIS: Unresectable colon polyp with tattooing. POSTOPERATIVE DIAGNOSIS: Unresectable colon polyp with tattooing. PROCEDURE PERFORMED: 1. Laparoscopic transverse colectomy. 2. Laparoscopic mobilization of the splenic flexure. ANESTHESIA: General. COMPLICATIONS: None. SPECIMENS: Transverse colon. Case was clean contaminated. ESTIMATED BLOOD LOSS: 100 cc. OPERATIVE COURSE: After consent was obtained, the patient was taken to the operating room and placed in the supine position on the operating table. Next, general anesthesia was given via endotracheal intubation. Thereafter a timeout was performed to confirm the correct patient and procedure. The abdomen was prepped and draped in the typical sterile fashion. Prior to prepping and draping, there was difficulty in placing a Covarrubias and intraoperative consultation was performed. Dr. Hoang, urologist who performed a cystoscopy and Covarrubias placement. Please see his procedure note. Once the Covarrubias was placed, the abdomen was prepped and draped in typical sterile fashion and then time-out was again taken to confirm the correct patient and procedure. The abdomen was prepped and draped in typical sterile fashion. A local anesthetic was injected in the right upper quadrant in the midclavicular line. Stab incision was made with an 11-blade scalpel. Using a 5-mm bladeless optical trocar, the abdomen was entered under direct laparoscopic vision. Adequate pneumoperitoneum was achieved. The abdominal cavity was inspected. No evidence of bowel injury. No evidence of bleeding. At this time, all additional trocars were placed. Three additional 5-mm trocars were placed at the administration of local anesthetic, two 5-mm trocar into the right lateral quadrant, and one 5 mm trocar in the left lateral quadrant. The colon was run from the sigmoid colon up to the splenic flexure and along the transverse colon. The greater omentum was reflected. The Rossy ink was identified in the mid transverse colon. At this time, the transverse colon was mobilized. The gastrocolic ligament was taken down using the Harmonic scalpel. Dissection continued along the gastrocolic ligament to the splenic flexure. The splenic flexure was mobilized using the Harmonic scalpel. The White line of Toldt was taken down along the left lateral pelvic side wall using the Harmonic scalpel. Dissection of the gastrocolic ligament and greater omentum continued along the transverse colon to the hepatic flexure. Once the colon was completely mobilized, a small upper midline incision was made and a GelPort J Carlos retractor was placed. The transverse colon was extracorporealized, 5 cm of margin were obtained on both sides of the area of Rossy ink. The transverse colon was then transected with linear cutting stapler with green load taylor. The mesentery was divided and mesenteric vessels were OPERATIVE REPORT [id number] REMIGIOZABRINAEvan MARQUEZ tied off using 2-0 silk sutures. Specimen was passed off the field. Next, a gvih-ee-mvhf anastomosis was performed, colotomies were made. The linear cutting stapler was used to create a common enterotomy. A second fire of stapler was then used to close the common enterotomy. The staple line was imbricated using 3-0 Stratafix suture. The abdomen was then copiously irrigated and suctioned. The GelPort was placed. The abdomen was reinsufflated. Again, at this time, all 4 quadrants of the abdomen were copiously irrigated and suctioned. There was no evidence of bowel injury. No evidence of bleeding. The remaining instruments were removed. The trocars were removed. GelPort was removed. Gown and gloves were changed. The midline incision was then closed with #1 looped PDS. Skin was closed with taylor. At the end of the case, all needle and instrument counts were correct. No complications occurred. The patient was extubated and transferred to the PACU in hemodynamically stable condition. TRANSINT:[id number] Voice Confirmation ID: [id number] DOCUMENT ID: [id number] YARI LUCERO MD at 1552 CC: [id number] DICTATION DATE: 04/08/17 1244 SADDLE LINING STITCHER: 04/08/17 1309 ADM IN [place] [id number] [place] [address]
--- NOTE | 2017-04-08 16:24 | NUR ---
1545--REPORT CALLED TO AISHA ON MED SURG, NURSE OVER 2215. PT TO TRANSFER. BAN PARKER
[2017-04-08 16:26] VITALS: BP 126/66; BMI 19.2
--- NOTE | 2017-04-08 16:35 | NUR ---
PT AOX4 RESP EVEN AND NONLABORED PT C/O PAIN OF 9 IN ABDOMEN. AND NAUSEA. IV TO LEFT FOREARM PATENT AND INTACT AT THIS TIME SRX2 BED AT LOWEST SETTING CALL LIGHT WITHIN REACH WILL CONTINUE TO MONITOR
[2017-04-08 20:00] VITALS: BP 143/68
--- NOTE | 2017-04-08 20:00 | NUR ---
ASSESSMENT PER FLOWSHEET. LAP SITE INCISIONS X3 C/D/I. SMALL BANDAIDES X2 AND ONE LARGE BANDAIDE X1 C/D/I. IV PATENT LEFT ARM OF NS AT 125CC'S/HR ORAL AND MAXILLOFACIAL SURGERY OF MORPHINE 1MG Q10MIN W/2MG Q4H L/O. EDMOND TO BEDSIDE DRAINAGE OF PINK URINE. PT REMAINS NPO. EXCEPT FOR ICE CHIPS AND SIPS OF WATER. SR UP X2 CALL LIGHT WITHIN REACH.
--- NOTE | 2017-04-08 22:00 | NUR ---
RESTING QUIETLY DENIES NEEDS.
[2017-04-09] VITALS: BP 145/66
--- NOTE | 2017-04-09 | NUR ---
UXCB=[id number] REFUSES AND TREATMENT. EYES CLOSED RESPIRATIONS WITH EASE AND UNLABORED.
--- NOTE | 2017-04-09 02:00 | NUR ---
RESTING QUIETLY REPOSITIONED IN BED SR UP X2 CALL LIGHT WITHIN REACH.
--- NOTE | 2017-04-09 04:15 | NUR ---
RESTING QUIETLY DENIES NEEDS.
[2017-04-09 05:26] LABS: BASOPHILS 0.1 % (0-2); EOSINOPHILS 0 % (0-7); HEMATOCRIT 41.8 % (42.0-54.0); HEMOGLOBIN 14.4 g/dL (13.5-17.5); IMMATURE GRANULOCYTES 0.2 % (0-5); LYMPHOCYTES 10.3 % (15-50); MCH 32.9 pg (26.0-34.0); MCHC 34.4 g/dL (31.0-37.0); MCV 95.4 fL (80.0-100.0); MEAN PLATELET VOLUME 10.9 fL (7.4-10.4); MONOCYTES 8.1 % (2-11); NEUTROPHILS 81.3 % (40-80); PLATELET COUNT 250 10x3/uL (130-400); RBC 4.38 10x6/uL (4.20-6.10); RDW 13.9 % (11.5-14.5)
[2017-04-09 05:35] LABS: WBC 10.3 10x3/uL (4.8-10.8)
[2017-04-09 05:44] LABS: CALC OSMOLALITY 277 mosm/kg (275-300); CALCIUM 8.5 mg/dL (8.5-10.1); CARBON DIOXIDE 25.7 mmol/L (21.0-32.0); CHLORIDE - SERUM 102 mmol/L (98-107); CREATININE - SERUM 0.9 mg/dL (0.6-1.3); MAGNESIUM - SERUM 1.8 mg/dL (1.8-2.4); SODIUM 138 mmol/L (136-145); UREA NITROGEN 12 mg/dL (7-18); eGFR NON AFRICAN AMERICAN 90 mL/min (90-120)
[2017-04-09 05:49] LABS: GLUCOSE 134 mg/dL (74-106)
--- NOTE | 2017-04-09 06:29 | NUR ---
NO CHANGES IN ASSESSMENT.
[2017-04-09 09:07] VITALS: BP 129/62
--- NOTE | 2017-04-09 09:41 | NUR ---
PATIENT RESTING IN BED. PATIENT IS AWAKE, ALERT, AND ORIENTED X4. PATIENT COMPLAINS OF PAIN IN HIS ABDOMEN. PATIENT RATES HIS PAIN LEVEL A "9" ON A 0-10 SCALE. PATIENT HAS BEEN USING EDUCATIONAL RECRUITER MORPHINE AND IT HAS NOT BEEN CONTROLLING HIS PAIN LEVEL. NEW ORDERS RECEIVED. EDUCATIONAL RECRUITER CHANGED TO EDUCATIONAL RECRUITER DILAUDID TO DELIVER 0.5 MG EVERY 10 MINUTES PRN WITH A 9 MG/4 HOUR LOCK OUT. ORIENTED PATIENT TO EDUCATIONAL RECRUITER PUMP. ASSESSMENT COMPLETED. SEE FLOWSHEET FOR ANY DETAILS. CALL LIGHT IN PATIENT'S REACH. WILL MONITOR PATIENT FOR ANY NEEDS.
[2017-04-09 10:01] VITALS: Ht 180.3 cm; Wt 62.6 kg
[2017-04-09 12:51] VITALS: BP 136/62
--- NOTE | 2017-04-09 14:29 | NUR ---
PATIENT RESTING QUIETLY ON HIS BACK. EYES CARE CLOSED. NO S/S OF DISTRESS NOTED. CALL LIGHT IN PATIENT'S REACH. WILL MONITOR PATIENT FOR ANY NEEDS.
[2017-04-09 17:07] VITALS: BP 131/55
--- NOTE | 2017-04-09 19:15 | NUR ---
RECEIVED CARE FROM DAY NURSE. PT IN HIGH FOWLERS POSITION. REPORTS NO NEEDS. COMPANY AT SIDE. IV INFUSING PER ORDER.
[2017-04-09 20:00] VITALS: BP 122/60
[2017-04-10] VITALS: BP 133/61
--- NOTE | 2017-04-10 03:10 | NUR ---
EYES CLOSED RESPIRATIONS WITH EASE AND UNLABORED. SR UP X2 CALL LIGHT WITHIN REACH.
[2017-04-10 04:00] VITALS: BP 131/62
[2017-04-10 06:35] LABS: BASOPHILS 0.1 % (0-2); EOSINOPHILS 0 % (0-7); HEMATOCRIT 37.9 % (42.0-54.0); HEMOGLOBIN 12.8 g/dL (13.5-17.5); IMMATURE GRANULOCYTES 0.2 % (0-5); LYMPHOCYTES 12.9 % (15-50); MCH 31.8 pg (26.0-34.0); MCHC 33.8 g/dL (31.0-37.0); MCV 94.3 fL (80.0-100.0); MEAN PLATELET VOLUME 11.1 fL (7.4-10.4); MONOCYTES 6.2 % (2-11); NEUTROPHILS 80.6 % (40-80); PLATELET COUNT 205 10x3/uL (130-400); RBC 4.02 10x6/uL (4.20-6.10); RDW 13.9 % (11.5-14.5)
[2017-04-10 07:02] LABS: CALC OSMOLALITY 267 mosm/kg (275-300); CALCIUM 8.1 mg/dL (8.5-10.1); CHLORIDE - SERUM 102 mmol/L (98-107); CREATININE - SERUM 0.6 mg/dL (0.6-1.3); GLUCOSE 99 mg/dL (74-106); MAGNESIUM - SERUM 2.1 mg/dL (1.8-2.4); POTASSIUM - SERUM 3.5 mmol/L (3.5-5.1); SODIUM 135 mmol/L (136-145); UREA NITROGEN 8 mg/dL (7-18); eGFR NON AFRICAN AMERICAN > 90 mL/min (90-120)
--- NOTE | 2017-04-10 07:50 | NUR ---
AWAKE AND ALERT. ORIENTED X3. NO C/O AT THIS TIME. REPORTS PAIN WELL CONTROLLED AT THIS TIME WITH WARP DYEING VAT TENDER. LUNGS ARE CLEAR BILATERALLY BUT DIMINISHED THROUGHOUT LUNG HATHAWAY. GIVEN IS AND INSTRUCTED IN USE WITH RETURN DEMONSTRATION. IV TO LEFT FOREARM IS PATENT WITHOUT REDNESS AT ISNERTION SITE. EDMOND PATENT WITH CLEAR YELLOW URINE. DENIES NEEDS. SCD'S ON AT THIS TIME.
[2017-04-10 08:48] VITALS: BP 132/66
--- NOTE | 2017-04-10 10:00 | NUR ---
UP TO CHAIR AT BEDSIDE WITH ONE PERSON MOD ASSIST. BLOOD NOTED TO BED LINENS. APPEARS JESUS OOZING FROM SCROTUM AREA. NO OPEN WOUNDS NOTED. WILL MONITOR.
--- NOTE | 2017-04-10 11:30 | NUR ---
BACK TO BED WITH ONE PERSON MIN ASSIST. LINENS CHANGED. DENIES NEEDS.
--- NOTE | 2017-04-10 13:00 | NUR ---
REFUSED CLEAR LIQUID TRAY AT THIS TIME. DISCUSSED REASON TO IMPROVE PO INTAKE AT THIS TIME. WILL MONITOR.
[2017-04-10 13:11] VITALS: BP 133/65
--- NOTE | 2017-04-10 15:05 | NUR ---
Patient Name: CHARLEY FLOOD Admission Status: Elective Accout number: [id number] Admission Date: 04-08-2017 : 1950 Admission Diagnosis: Attending: YARI LUCERO Current LOS: 2 Anticipated DC Date: 04-13-2017 Planned Disposition: Home with Home Health Primary Insurance: [facility] Discharge Planning Comments: CM MET WITH PATIENT REGARDING D/C NEEDS AND PLANS. PATIENT STATED HE LIVES ALONE AND HIS DAUGHTER WILL DRIVE HIM HOME AT DISCHARGE. PATIENT STATED HE HAS 5 STEPS TO ENTER HOME AND NO STAIRS INSIDE. PATIENT STATED SHE IS INDEPENDENT WITH HER CARE AND HAS A CANE AT HOME. PATIENTS PCP IS DR. ERNANDEZ AND PHARMACY IS [facility] IN [place]. PATIENT SIGNED THE ANIA FORM WITH [facility]. CM WILL CONTINUE TO FOLLOW PATIENT WITH D/C NEEDS AND PLANS. PCP DR. MOA CRUZ IN [facility]. [phone] MADY GONZALES (DAUGHTER) [phone] Orthodontist: Kim Aguero Is the patient Alert and Oriented? Yes 0 * How many steps to enter\exit or inside your home? 5 w/rails 0 * PCP DR. ERNANDEZ 0 * Pharmacy [facility] IN [facility]. 0 * Preadmission Environment Home Alone 0 * ADLs Independent 0 * Equipment Cane 0 * List name and contact numbers for known caregivers / representatives who currently or will assist patient after discharge: MADY GONZALES (DAUGHTER) [phone] * Community resources currently utilized None 0 * Additional services required to return to the preadmission environment? Yes 0 * Can the patient safely return to the preadmission environment? Yes 0 * Has this patient been hospitalized within the prior 30 days at any hospital? No 0 Grand Total: 0
--- NOTE | 2017-04-10 15:30 | NUR ---
RESTING QUIETLY IN BED WITH EYES CLOSED. DENIES NEEDS.
[2017-04-10 16:21] VITALS: BP 133/74
--- NOTE | 2017-04-10 18:33 | NUR ---
ATE ABOUT HALF OF SUPPER TRAY. NO CHANGES NOTED. DENIES NEEDS.
[2017-04-10 20:00] VITALS: BP 136/64
--- NOTE | 2017-04-10 20:10 | NUR ---
FAMILY MEMBERS TALK TO PT AT BEDSIDE.
--- NOTE | 2017-04-10 23:31 | NUR ---
REST IN BED, EYE CLOSE, CALL LIGHT IN REACH.
--- NOTE | 2017-04-11 01:30 | NUR ---
REST QUIETLY IN BED,CALL LIGHT IN REACH.
--- NOTE | 2017-04-11 02:39 | NUR ---
ASSESSED, PT IS AWAKE AND TV IS ON. ICE WATER WAS REQUESTED AND RECEIVED. NO DISTRESS NOTED OR REPORTED. PT HAS A HOUSE CARPENTER FOR PAIN CONTROL. THE BED IS LOW, RAILS UP X'S 2 WITH THE CALL LIGHT AT HAND.
--- NOTE | 2017-04-11 04:35 | NUR ---
IN BED, CALL LIGHT IN REACH.
[2017-04-11 06:21] LABS: BASOPHILS 0.1 % (0-2); EOSINOPHILS 0.7 % (0-7); HEMATOCRIT 36.6 % (42.0-54.0); HEMOGLOBIN 12.5 g/dL (13.5-17.5); IMMATURE GRANULOCYTES 0.2 % (0-5); LYMPHOCYTES 11.2 % (15-50); MCH 32.2 pg (26.0-34.0); MCHC 34.2 g/dL (31.0-37.0); MCV 94.3 fL (80.0-100.0); MEAN PLATELET VOLUME 10.5 fL (7.4-10.4); NEUTROPHILS 80.8 % (40-80); PLATELET COUNT 175 10x3/uL (130-400); RBC 3.88 10x6/uL (4.20-6.10); RDW 13.4 % (11.5-14.5); WBC 9.2 10x3/uL (4.8-10.8)
[2017-04-11 06:39] LABS: CALC OSMOLALITY 268 mosm/kg (275-300); CARBON DIOXIDE 22.7 mmol/L (21.0-32.0); CHLORIDE - SERUM 102 mmol/L (98-107); CREATININE - SERUM 0.5 mg/dL (0.6-1.3); GLUCOSE 85 mg/dL (74-106); MAGNESIUM - SERUM 2.2 mg/dL (1.8-2.4); POTASSIUM - SERUM 3.4 mmol/L (3.5-5.1); SODIUM 136 mmol/L (136-145); UREA NITROGEN 8 mg/dL (7-18); eGFR NON AFRICAN AMERICAN > 90 mL/min (90-120)
--- NOTE | 2017-04-11 08:31 | NUR ---
AWAKE AND ALERT. ORIENTED X3. NO C/O THIS AM. LUNGS ARE CLEAR BILATERALLY, NO COUGH NOTED. REPORTS USING IS INSTRUCTED. SKIN IS INTACT WITHOUT REDNESS EXCEPT 4 SMALL INSERTION SITES TO ABDOMEN AND INCISION TO MID ABDOMEN WITH CLIPS INTACT. ALL WITHOUT SIGNS OF INFECTION. IV PT LEFT FOREARM IS PATNET WITHOUT REDNESS AT ISNERTION SITE. EDMOND PATENT WITH CLEAR YELLOW URINE. DENIES NEEDS.
--- NOTE | 2017-04-11 09:30 | NUR ---
ATE MOST OF CLEAR LIQUID BREAKFAST. [facility]. DID VERY WELL. UP IN [facility] AT THIS TIME.
[2017-04-11 09:38] VITALS: BP 113/62
[2017-04-11 13:41] VITALS: BP 130/64
--- NOTE | 2017-04-11 15:24 | NUR ---
AMBULATED ABOUT 50 FEET WITH RW. UP IN CHAIR AT BEDSIDE NOW.
[2017-04-11 15:51] VITALS: BP 134/62
--- NOTE | 2017-04-11 18:36 | NUR ---
ATE OVER HALF OF FULL LIQUID SUPPER. NO C/O NAUSEA OR PAIN. NO CHANGES NOTED. DENIES NEEDS.
--- NOTE | 2017-04-11 19:46 | NUR ---
PT IS SITTING UP IN BED, STATED HAD A NICE DAY, PAIN IS AT A 3 IN ABDOMINAL AREA AROUND MIDLINE, PT VOICED CONCERN OF NOT BEING ABLE TO COUGH DUE TO MIDLINE INCISION, ENCOURAGED PT TO USE PILLOW TO BRACE SELF WHILE COUGHING, BED IS IN LOW POSAITION, NO OTHER NEEDS AT THIS TIME, CONTINUE WITH PLAN OF CARE
[2017-04-11 20:00] VITALS: BP 134/71
--- NOTE | 2017-04-11 23:15 | NUR ---
RESTING, NO DISTRESS NOTED, DENIES NEEDS, CALL LIGHT IN REACH, WILL CONTINUE TO MONITOR
[2017-04-12] VITALS: BP 130/70
[2017-04-12 04:00] VITALS: BP 147/71
[2017-04-12 05:01] LABS: BASOPHILS 0.3 % (0-2); EOSINOPHILS 2.7 % (0-7); HEMATOCRIT 36.2 % (42.0-54.0); HEMOGLOBIN 12.2 g/dL (13.5-17.5); IMMATURE GRANULOCYTES 0.3 % (0-5); LYMPHOCYTES 10.6 % (15-50); MCH 31.9 pg (26.0-34.0); MCHC 33.7 g/dL (31.0-37.0); MCV 94.8 fL (80.0-100.0); MEAN PLATELET VOLUME 10.4 fL (7.4-10.4); MONOCYTES 7.2 % (2-11); NEUTROPHILS 78.9 % (40-80); PLATELET COUNT 184 10x3/uL (130-400); RBC 3.82 10x6/uL (4.20-6.10); RDW 13.3 % (11.5-14.5); WBC 7.7 10x3/uL (4.8-10.8)
[2017-04-12 05:25] LABS: CALC OSMOLALITY 274 mosm/kg (275-300); CALCIUM 8.2 mg/dL (8.5-10.1); CARBON DIOXIDE 26.2 mmol/L (21.0-32.0); CHLORIDE - SERUM 103 mmol/L (98-107); CREATININE - SERUM 0.6 mg/dL (0.6-1.3); GLUCOSE 103 mg/dL (74-106); MAGNESIUM - SERUM 2.2 mg/dL (1.8-2.4); POTASSIUM - SERUM 3.5 mmol/L (3.5-5.1); SODIUM 138 mmol/L (136-145); UREA NITROGEN 9 mg/dL (7-18); eGFR NON AFRICAN AMERICAN > 90 mL/min (90-120)
--- NOTE | 2017-04-12 07:58 | NUR ---
AWAKE AND ALERT. ORIENTED X3. C/O BACK AND NECK PAIN THIS AM. "JUST CAN'T GET COMFORTABLE". WILL MONITOR. LUNGS HAVE CRACKLES THROUGOUT LUNG HATHAWAY, OCCASSIONAL DRY COUGH NOTED. SKIN IS INTACT WITHOUT REDNESS EXCEPT INCISION TO MID ABDOMEN WHICH IS DRY AND INTACT WITH CLIPS INTACT. 4 INSERTION SITES TO ABDOMEN ALSO DRY AND INTACT. IV TO LEFT FOREARM IS PATENT WITHOUT REDNESS AT INSERTION SITE. DENIES NEEDS. EDMOND PATNET WITH CLEAR YELLOW URINE.
[2017-04-12 08:20] VITALS: BP 129/68
--- NOTE | 2017-04-12 10:04 | NUR ---
DISCUSSED USE OF MENTAL HEALTH CASE MANAGER. PATIENT THOUGHT HE SHOULD ONLY PUSH THE BUTTON ONCE AN HOUR. INSTRUCTED IN CORRECT USE OF MENTAL HEALTH CASE MANAGER. WILL MONITOR.
[2017-04-12 11:38] VITALS: BP 122/64
--- NOTE | 2017-04-12 12:30 | NUR ---
ATE PART OF FULL LIQUID LUNCH TRAY. DENIES NEEDS.
--- NOTE | 2017-04-12 15:00 | NUR ---
UP IN [facility] AT BEDSIDE PER PT. NO C/O AT THIS TIME.
[2017-04-12 15:04] VITALS: BP 118/62
[2017-04-12 20:00] VITALS: BP 117/75
--- NOTE | 2017-04-13 02:15 | NUR ---
COMPUTER LAB ASSISTANT REPORTED FINDING BLOOD AROUND THE EDMOND CATH.
--- NOTE | 2017-04-13 03:02 | NUR ---
PATIENT RESTING COMFORTABLY AFTER RECIEVING FLEXERIL AND TORADOL WITH BED TIME MEDS. PAIN LEVEL DECREASED FROM 10+ TO 2-3 NOW. WAS INCONTINENT OF BOWEL ONCE. NO OTHER NEEDS NOTED AT THIS TIME.
[2017-04-13 05:47] LABS: BASOPHILS 0.2 % (0-2); EOSINOPHILS 3.9 % (0-7); HEMATOCRIT 38.2 % (42.0-54.0); HEMOGLOBIN 12.8 g/dL (13.5-17.5); IMMATURE GRANULOCYTES 0.2 % (0-5); LYMPHOCYTES 15.7 % (15-50); MCH 31.8 pg (26.0-34.0); MCHC 33.5 g/dL (31.0-37.0); MEAN PLATELET VOLUME 10.3 fL (7.4-10.4); PLATELET COUNT 216 10x3/uL (130-400); RBC 4.02 10x6/uL (4.20-6.10); RDW 13.3 % (11.5-14.5); WBC 6.5 10x3/uL (4.8-10.8)
[2017-04-13 06:05] LABS: CALC OSMOLALITY 276 mosm/kg (275-300); CALCIUM 8.6 mg/dL (8.5-10.1); CARBON DIOXIDE 28.6 mmol/L (21.0-32.0); CHLORIDE - SERUM 101 mmol/L (98-107); CREATININE - SERUM 0.7 mg/dL (0.6-1.3); GLUCOSE 102 mg/dL (74-106); MAGNESIUM - SERUM 2.6 mg/dL (1.8-2.4); POTASSIUM - SERUM 3.3 mmol/L (3.5-5.1); SODIUM 138 mmol/L (136-145); eGFR NON AFRICAN AMERICAN > 90 mL/min (90-120)
[2017-04-13 06:06] LABS: UREA NITROGEN 15 mg/dL (7-18)
--- NOTE | 2017-04-13 06:45 | NUR ---
PATIENT TOOK PO POTASSIUM FOR THE ELECTROLYTE PROTOCOL AND DEVELOPED STOMACH CRAMPS
--- NOTE | 2017-04-13 07:46 | NUR ---
PT AOX4 RESP EVEN AND NONLABORED PT DENIES NEEDS AT THIS TIME IV LEFT FOREARM PATENT AND INTACT AT THIS TIME SRX2 BED IN LOWEST SETTING CALL LIGHT WITHIN REACH WILL CONTINUE TO MONITOR
[2017-04-13 08:10] VITALS: BP 116/72
[2017-04-13 11:23] VITALS: BP 106/65
--- NOTE | 2017-04-13 13:53 | NUR ---
NUTRITION F/U PT TOLERATING SMALL AMT FULL LIQUID DIET. WILL MONITOR DIET ADVANCEMENT, PO INTAKE. RD FOLLOWING
[2017-04-13 15:30] VITALS: BP 99/64
--- NOTE | 2017-04-13 19:15 | NUR ---
RECEIVED CARE FROM DAY NURSE. PT IN HIGH FOWLERS POSITION. REPORTS NO NEEDS AT THIS TIME. CALL LIGHT WITHIN REACH. IV INFUSING TO LEFT FA PER ORDER.
[2017-04-13 20:00] VITALS: BP 100/70
--- NOTE | 2017-04-14 01:41 | NUR ---
PT IN HIGH FOWLERS POSITION. EYES CLOSED. RESP EVEN AND UNLABORED. CALL LIGHT AT SIDE. IV INFUSING PER ORDER.
[2017-04-14 05:22] VITALS: BP 115/61
[2017-04-14 06:03] LABS: BASOPHILS 0.4 % (0-2); EOSINOPHILS 2.9 % (0-7); HEMOGLOBIN 13.7 g/dL (13.5-17.5); IMMATURE GRANULOCYTES 0.2 % (0-5); LYMPHOCYTES 15.8 % (15-50); MCH 31.9 pg (26.0-34.0); MCHC 33.4 g/dL (31.0-37.0); MCV 95.6 fL (80.0-100.0); MEAN PLATELET VOLUME 10.4 fL (7.4-10.4); MONOCYTES 12.6 % (2-11); NEUTROPHILS 68.1 % (40-80); RBC 4.29 10x6/uL (4.20-6.10); RDW 13.5 % (11.5-14.5); WBC 5.5 10x3/uL (4.8-10.8)
[2017-04-14 06:12] LABS: PLATELET COUNT 278 10x3/uL (130-400)
[2017-04-14 06:23] LABS: CALC OSMOLALITY 281 mosm/kg (275-300); CALCIUM 8.7 mg/dL (8.5-10.1); CARBON DIOXIDE 28.5 mmol/L (21.0-32.0); CHLORIDE - SERUM 102 mmol/L (98-107); CREATININE - SERUM 0.7 mg/dL (0.6-1.3); GLUCOSE 112 mg/dL (74-106); MAGNESIUM - SERUM 2.3 mg/dL (1.8-2.4); POTASSIUM - SERUM 4.1 mmol/L (3.5-5.1); SODIUM 139 mmol/L (136-145); eGFR NON AFRICAN AMERICAN > 90 mL/min (90-120)
[2017-04-14 06:31] LABS: UREA NITROGEN 21 mg/dL (7-18)
--- NOTE | 2017-04-14 07:30 | NUR ---
REPORT RECEIVED. RR EVEN AND UNLABORED, DILUDID RESOURCE ENGINEER RUNNING. PT DENIES NEEDS AT THIS TIME, REPORTS THAT PAIN IS CONTROLLED. PT IS ALERT AND ORIENTED. WILL CTM.
[2017-04-14 08:13] VITALS: BP 98/57
[2017-04-14] MEDS ORDERED: HYDROCODONE-APA1 TAB PO (08:36)
--- NOTE | 2017-04-14 10:30 | NUR ---
TEMPER MILL ROLLER SYRINGE ALMOST EMPTY. GAVE BOLUS DOSE AND DISPOSED OF SYRINGE IN SHARPS. WILL NOT START ANOTHER SYRINGE DUE TO PT BEING D/C HOME TODAY. WILL GIVE PRN PAIN MEDS NEEDED UNITL PT DISCHARGE.
--- NOTE | 2017-04-14 10:34 | NUR ---
PATIENT DISCHARING HOME TODAY. PATIENT WOULD LIKE HOME [facility] SET UP WITH [facility]. REFERRAL SENT. FAMILY TO DRIVE PATIENT HOME. IMM SERVED.CM WILL CONTINUE TO FOLLOW AND ASSIST IF NEEDED FOR FUTHER DISCHARGE PLANNING NEEDS
--- NOTE | 2017-04-14 11:12 | NUR ---
NUTRITION F/U PROVIDED PT WITH LOW FIBER/RESIDUE DIET INFORMATION FOR DISCHARGE. RD FOLLOWING
--- NOTE | 2017-04-14 14:15 | NUR ---
PT DISCHARGED. D/C INSTRUCTIONS PROVIDED WITH ONE WRITTEN PRESCRIPTION. EDUCATED PT ON EDMOND CATHETER CARE, INCLUDING HOW TO CHANGE THE LEG BAG. EXTRA LEG BAG PROVIDED TO PT AND CHARGE STICKERS PLACED ON CHART. ABDOMINAL BINDER EDUCATION PROVIDED TO PT, PT VERBALIZED UNDERSTANDING. IV CATHETER REMOVED WITH CATHETER TIP INTACT. DRESSING APPLIED. PT DENIES FURTHER QUESTIONS OR NEEDS. WILL CALL WHEN READY TO GO HOME WITH DAUGHTER. PT WILL BE LEAVING FLOOR VIA WHEECHAIR. WILL CTM UNITL PT LEAVES FLOOR.
--- NOTE | 2017-04-14 14:45 | NUR ---
PT LEFT THE FLOOR VIA WHEELCHAIR.
== END 2017-04-14 15:05 | disposition home or self-care (01) | DRG 330 ==
LOC: D.MS 05:10 → D.SDCHOLD 05:10 → D.MS 15:58
PROVIDERS: Anesthesiology; Urology; ADMIT Surgery
PROC: 0T9B80Z Drainage of Bladder with Drainage Device, Via Natural or Artificial Opening Endoscopic (ICD-10-PCS; 2017-04-08)
PROC: 0DBL4ZZ Excision of Transverse Colon, Percutaneous Endoscopic Approach (ICD-10-PCS; principal; 2017-04-08 08:45)
PROC: 0DNL4ZZ Release Transverse Colon, Percutaneous Endoscopic Approach (ICD-10-PCS; 2017-04-08 08:45)
DX: D12.3 Benign neoplasm of transverse colon (principal); F17.203 Nicotine dependence unspecified, with withdrawal; J44.9 Chronic obstructive pulmonary disease, unspecified; N36.5 Urethral false passage

== ENCOUNTER → 2018-11-08 09:37 | Outpatient (CLI) | payer MEDICARE, MEDICAID ==
[2017-04-09 10:01] VITALS: BMI 19.2
== END | disposition home or self-care (01) ==
LOC: D.RT 09:37
PROVIDERS: ATTEND Family Medicine
DX: J44.9 Chronic obstructive pulmonary disease, unspecified (principal)